=== PATIENT | male | born 1970 | race Caucasian/White ===

== ENCOUNTER 2025-01-12 10:30 | Inpatient (IN) | payer OTHER, SELFPAY ==
[2025-01-12] VITALS (22 sets, daily range): BP systolic 95–172; BP diastolic 64–144; PULSE 95–125; RESP 18–36; TEMP 36.6–38.1; O2SAT 95–100; BMI 26.9
--- NOTE | ~2025-01-12 | CT_ITS ---
EXAMINATION: CT brain wo con DATE: 01/12/2025 11:43 INDICATION: Syncope TECHNIQUE: Computed tomography (CT) of the head was performed without intravenous contrast. Sagittal and coronal reconstructions were performed. The mA was adjusted according to patient size. Iterative reconstruction technique was employed. The dose-length product was 605.33 mGy-cm. COMPARISON: None FINDINGS: No acute intracranial hemorrhage, acute infarction or abnormal extra axial fluid collection. Ventricl es are normal and symmetric. No mass/mass effect. Small mucous retention cyst in the inferior right f rontal sinus. The orbits and mastoid air cells are normal. IMPRESSION: 1. Normal brain. No acute intracranial process. Reviewed, dictated and finalized at location A. SBOW MAKER
--- NOTE | ~2025-01-12 | XR_ITS ---
EXAMINATION: XR chest 2V DATE: 01/12/2025 11:46 INDICATION: Chest pain. Syncope. TECHNIQUE: PA and lateral views of the chest were obtained. COMPARISON: None FINDINGS: Confluent airspace opacities in the right upper lobe and superior segment of the right lower lobe con sistent with pneumonia. Right lung is clear. No pleural effusion or pneumothorax. The cardiomediastin al silhouette is normal. Visualized bones and soft tissues are unremarkable. IMPRESSION: 1. Consolidation in the right upper and lower lobes consistent with pneumonia. Reviewed, dictated and finalized at location A. 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
--- OUTSIDE RECORDS SUMMARY | 2025-01-12 10:34 | XMS_ITS | Clinical Summary ---
Author Organization [facility] Physician Office Building [address] [place] [id number] Care Team Providers Care [employer] Director Name Role Phone Shannan Avina NP Primary Care Provider [phone] Allergies No known active allergies Medications methIMAzole (TAPAZOLE) 5 mg tabletIndicati ons:Graves disease,Hypert hyroidism,Diff use toxic goiter TAKE 1 TABLET (5 MG) BY MOUTH 6 DAYS PER WEEK. SKIP ON TUESDAY. 72 tablet 1 5 Active methIMAzole (TAPAZOLE) 5 mg tabletIndicati ons:Graves disease,Hypert hyroidism,Diff use toxic goiter TAKE 1 TABLET (5 MG TOTAL) BY MOUTH six days a week and none on sundays 78 tablet 1 4 12/27/19 25 Discontinued Active Problems Problem Noted Date Diagnosed Date Smoking 1/2 pack a day or less 06/23/2020 Assessment & Plan (12/22/2022 12:24 PM WINDOW FRAMER): Counseled to cut back on smoking Assessment & Plan (08/10/2022 3:54 PM CDT): Counseled to cut back and quit smoking Assessment & Plan (09/18/2021 1:18 PM CDT): Strongly advised to cut back and quit smoking Assessment & Plan (03/25/2021 7:22 AM CDT): Strongly advised to cut back and quit smoking Assessment & Plan (06/23/2020 9:29 PM CDT): Strongly advised to cut back and quit smoking Graves disease 05/15/2018 Assessment & Plan (01/25/2024 8:15 AM WINDOW FRAMER): Chronic, improving Recent thyroid function test Plan to decrease methimazole to 5 mg oral 6 days a week Check thyroid function test include thyroid antibodies in 3 months Follow-up in 6 months Assessment & Plan (07/14/2023 10:55 AM CDT): Chronic, stable Recent thyroid function test within normal limits Plan to decrease methimazole to 5 mg oral daily Check thyroid function test include thyroid antibodies in 3 months Follow-up in 6 months Assessment & Plan (12/22/2022 12:24 PM WINDOW FRAMER): Plan as above Assessment & Plan (08/10/2022 3:54 PM CDT): Plan as above Assessment & Plan (01/27/2022 7:21 AM WINDOW FRAMER): Status post radioactive iodine ablation September 2021 Patient currently on methimazole 20 mg oral daily Recheck thyroid function test today and further plans based on it Reviewed today's labs, improving Decrease Methimazole to 10 mg oral dialy Recheck TFT in 3 months Assessment & Plan (06/23/2020 9:27 PM CDT): No compressive symptoms Assessment & Plan (05/15/2018 9:43 PM CDT): Pt. C/o snoring and difficulty breathing at night Will obtain CT scan soft tissue neck - to see any tracheal compression Hyperthyroidism 08/19/2017 Assessment & Plan (12/22/2022 12:24 PM WINDOW FRAMER): Patient currently on methimazole 10 mg oral 5 days a week Reviewed and discussed patient recent thyroid labs Patient recent thyroid labs Oral normal range Clinically euthyroid Continue current dose of methimazole Recheck labs in 3 months and every 3 months Follow-up in 6 months Assessment & Plan (08/10/2022 3:53 PM CDT): Patient currently on methimazole 10 mg oral 6 days a week This dose has been adjusted on 07/20/2022 Advised to continue current medication dose Recheck thyroid function test include thyroid antibodies in September 2022 and follow-up in November 2021 Assessment & Plan (09/18/2021 1:16 PM CDT): - reviewed recent TFT , uncontrolled hyperthyroidism - increase Methimazole to 20 mg oral daily - given uncontrolled worsening hyperthyroidism . discussed with pt to consider I131 QUINTEROS therapy Pt willing to do - will order NM thyroid uptake and scan, followed by I 131 QUINTEROS - advise pt to hold methimazole 3 days before NM thyroid uptake and scan and restart Methimazole post I 131 QUINTEROS and recheck TFT in 4 weeks Important Information About your antithyroid Medication Instruction to patients taking Tapazole (methimazole) for the treatment of hyperthyroidism Name: Tomás Louis Date of : 1970 Medication : Methimazole Dose : 10 mg Frequency: take 2 tabs oral daily Take your medication every day as directed by your physician unless you notice the problems listed below: If you notice a skin rash, then call your doctor as soon as possible. If you notice a sore throat, sores in the mouth, or develop a fever: Call your doctor as soon as possible You need to go to your doctor s office or hospital to have a blood test (Complete Blood Count and Differential Count) If the blood test is normal, then your doctor will instruct you to continue taking the anti-thyroid medication. DO NOT stop the anti-thyroid medication unless your doctor tells you to do so. As long as you are taking this anti-thyroid medication, you must see your physician regularly to keep the medication properly adjusted based on your thyroid blood tests. Then please contact your doctor immediately Assessment & Plan (03/25/2021 7:22 AM CDT): - reviewed recent TFT - TSH Low, worsening - advise Methimazole to 5 mg - 1/2 tab 4 days a week and on Tue, Sat, Sun take one full tab - labs in every 3 months - follow up in 6 months Important Information About your antithyroid Medication Instruction to patients taking Tapazole (methimazole) for the treatment of hyperthyroidism Name: Tomás Louis Date of : 1970 Medication : Methimazole Dose : 5 Frequency: take one tab on Tuesday, Tue, Tue And take 2 tabs on Tuesday And , Tuesday , Tuesday , Take your medication every day as directed by your physician unless you notice the problems listed below: If you notice a skin rash, then call your doctor as soon as possible. If you notice a sore throat, sores in the mouth, or develop a fever: Call your doctor as soon as possible You need to go to your doctor s office or hospital to have a blood test (Complete Blood Count and Differential Count) If the blood test is normal, then your doctor will instruct you to continue taking the anti-thyroid medication. DO NOT stop the anti-thyroid medication unless your doctor tells you to do so. As long as you are taking this anti-thyroid medication, you must see your physician regularly to keep the medication properly adjusted based on your thyroid blood tests. Then please contact your doctor immediately Assessment & Plan (06/23/2020 9:27 PM CDT): - reviewed recent TFT - TSH slightly high - advise to decrease Methimazole to 5 mg oral daily - labs in every 3 months - follow up in 6 months Important Information About your antithyroid Medication Instruction to patients taking Tapazole (methimazole) for the treatment of hyperthyroidism Name: Tomás Louis Date of : 1970 Medication : Methimazole Dose : 5 Frequency: take one tab on Tuesday, Tue And take 2 tabs on Tuesday And , Tuesday , Tuesday , Take your medication every day as directed by your physician unless you notice the problems listed below: If you notice a skin rash, then call your doctor as soon as possible. If you notice a sore throat, sores in the mouth, or develop a fever: Call your doctor as soon as possible You need to go to your doctor s office or hospital to have a blood test (Complete Blood Count and Differential Count) If the blood test is normal, then your doctor will instruct you to continue taking the anti-thyroid medication. DO NOT stop the anti-thyroid medication unless your doctor tells you to do so. As long as you are taking this anti-thyroid medication, you must see your physician regularly to keep the medication properly adjusted based on your thyroid blood tests. Then please contact your doctor immediately Assessment & Plan (12/27/2019 9:25 AM WINDOW FRAMER): - reviewed recent TFT - WNL - advise to continue to take Methimazole 5 mg take one tab on Tuesday- , Tue And take 2 tabs Tuesday , Tuesday , - labs in every 3 months - follow up in 6 months Important Information About your antithyroid Medication Instruction to patients taking Tapazole (methimazole) for the treatment of hyperthyroidism Name: Tomás Louis Date of : 1970 Medication : Methimazole Dose : 5 Frequency: take one tab on Tuesday, Tue, Tue And take 2 tabs on Tuesday And , Tuesday , Tuesday , Take your medication every day as directed by your physician unless you notice the problems listed below: If you notice a skin rash, then call your doctor as soon as possible. If you notice a sore throat, sores in the mouth, or develop a fever: Call your doctor as soon as possible You need to go to your doctor s office or hospital to have a blood test (Complete Blood Count and Differential Count) If the blood test is normal, then your doctor will instruct you to continue taking the anti-thyroid medication. DO NOT stop the anti-thyroid medication unless your doctor tells you to do so. As long as you are taking this anti-thyroid medication, you must see your physician regularly to keep the medication properly adjusted based on your thyroid blood tests. Then please contact your doctor immediately Assessment & Plan (06/25/2019 2:08 PM CDT): - reviewed recent TFT - WNL - advise to continue to take Methimazole 5 mg take one tab on Tuesday, Tue, Tue And take 2 tabs on Tuesday And , Tuesday , Tuesday , - labs in every 3 months - follow up in 6 months Important Information About your antithyroid Medication Instruction to patients taking Tapazole (methimazole) for the treatment of hyperthyroidism Name: Tomás Louis Date of : 1970 Medication : Methimazole Dose : 5 Frequency: take one tab on Tuesday, Tue, Tue And take 2 tabs on Tuesday And , Tuesday , Tuesday , Take your medication every day as directed by your physician unless you notice the problems listed below: If you notice a skin rash, then call your doctor as soon as possible. If you notice a sore throat, sores in the mouth, or develop a fever: Call your doctor as soon as possible You need to go to your doctor s office or hospital to have a blood test (Complete Blood Count and Differential Count) If the blood test is normal, then your doctor will instruct you to continue taking the anti-thyroid medication. DO NOT stop the anti-thyroid medication unless your doctor tells you to do so. As long as you are taking this anti-thyroid medication, you must see your physician regularly to keep the medication properly adjusted based on your thyroid blood tests. Then please contact your doctor immediately Assessment & Plan (11/13/2018 8:49 PM WINDOW FRAMER): - advise to continue to take Methimazole 5 mg oral daily - recheck TFT soon and further plans based on repeat labs - repeat labs soon and every 3 months - follow up in 6 months Important Information About your antithyroid Medication Instruction to patients taking Tapazole (methimazole) for the treatment of hyperthyroidism Name: Tomás Louis Date of : 1970 Medication : Methimazole Dose : 5 Frequency: once daily Take your medication every day as directed by your physician unless you notice the problems listed below: If you notice a skin rash, then call your doctor as soon as possible. If you notice a sore throat, sores in the mouth, or develop a fever: Call your doctor as soon as possible You need to go to your doctor s office or hospital to have a blood test (Complete Blood Count and Differential Count) If the blood test is normal, then your doctor will instruct you to continue taking the anti-thyroid medication. DO NOT stop the anti-thyroid medication unless your doctor tells you to do so. As long as you are taking this anti-thyroid medication, you must see your physician regularly to keep the medication properly adjusted based on your thyroid blood tests. Then please contact your doctor immediately Assessment & Plan (08/13/2018 9:38 PM CDT): - checked labs today - and based on the results - TSH high, pt has iatrogenic hypothyroidism - advised to stop methimazole for one week, then restart taking Methimazole 5 mg oral daily - follow up in 3 months Important Information About your antithyroid Medication Instruction to patients taking Tapazole (methimazole) for the treatment of hyperthyroidism Name: Tomás Louis Date of : 1970 Medication : Methimazole Dose : 5 Frequency: once daily Take your medication every day as directed by your physician unless you notice the problems listed below: If you notice a skin rash, then call your doctor as soon as possible. If you notice a sore throat, sores in the mouth, or develop a fever: Call your doctor as soon as possible You need to go to your doctor s office or hospital to have a blood test (Complete Blood Count and Differential Count) If the blood test is normal, then your doctor will instruct you to continue taking the anti-thyroid medication. DO NOT stop the anti-thyroid medication unless your doctor tells you to do so. As long as you are taking this anti-thyroid medication, you must see your physician regularly to keep the medication properly adjusted based on your thyroid blood tests. Then please contact your doctor immediately Assessment & Plan (05/15/2018 9:42 PM CDT): - advised to continue taking Methimazole to 20 mg oral daily - c/w Atenolol to 25 mg oral daily - will try to obtain pt. Recent labs from [facility] and reassess and further adjust Methimazole accordingly - follow up in 2 months Important Information About your antithyroid Medication Instruction to patients taking Tapazole (methimazole) for the treatment of hyperthyroidism Name: Tomás Louis Date of : 1970 Medication : Methimazole Dose : 20 mg Frequency: once daily Take your medication every day as directed by your physician unless you notice the problems listed below: If you notice a skin rash, then call your doctor as soon as possible. If you notice a sore throat, sores in the mouth, or develop a fever: Call your doctor as soon as possible You need to go to your doctor s office or hospital to have a blood test (Complete Blood Count and Differential Count) If the blood test is normal, then your doctor will instruct you to continue taking the anti-thyroid medication. DO NOT stop the anti-thyroid medication unless your doctor tells you to do so. As long as you are taking this anti-thyroid medication, you must see your physician regularly to keep the medication properly adjusted based on your thyroid blood tests. Then please contact your doctor immediately Assessment & Plan (03/06/2018 7:31 AM CDT): - Reviewed pt. Labs from 02/22/2018 TSH - < 0.015 Free T 3 - 19.5 Free T4 - 3.4 - advised to increase Methimazole to 20 mg oral daily - c/w Atenolol to 25 mg oral daily - pt. Prefers to continue Methimazole, do not to try QUINTEROS ablation , might consider as an option if not responding to oral antithyroid therapy - recheck blood Work every 2 months - follow up in 2 months Important Information About your antithyroid Medication Instruction to patients taking Tapazole (methimazole) for the treatment of hyperthyroidism Name: Tomás Louis Date of : 1970 Medication : Methimazole Dose : 20 mg Frequency: once daily Take your medication every day as directed by your physician unless you notice the problems listed below: If you notice a skin rash, then call your doctor as soon as possible. If you notice a sore throat, sores in the mouth, or develop a fever: Call your doctor as soon as possible You need to go to your doctor s office or hospital to have a blood test (Complete Blood Count and Differential Count) If the blood test is normal, then your doctor will instruct you to continue taking the anti-thyroid medication. DO NOT stop the anti-thyroid medication unless your doctor tells you to do so. As long as you are taking this anti-thyroid medication, you must see your physician regularly to keep the medication properly adjusted based on your thyroid blood tests. Then please contact your doctor immediately Assessment & Plan (10/25/2017 10:43 AM WINDOW FRAMER): - Reviewed pt. Labs from 10/24/2017 TSH - < 0.015 ( L) Free T 4- 0.29 ( L) Free T 3 - 4.4 - advised to decrease Methimazole to 10 mg oral daily - decrease Atenolol to 25 mg oral daily - pt. Prefers to continue Methimazole, do not to try QUINTEROS ablation , might consider as an option if not responding to oral antithyroid therapy - recheck blood Work in 2 months and every 2 months - follow up in 4 months Important Information About your antithyroid Medication Instruction to patients taking Tapazole (methimazole) for the treatment of hyperthyroidism Name: Tomás Louis Date of : 1970 Medication : Methimazole Dose : 10 mg Frequency: once daily Take your medication every day as directed by your physician unless you notice the problems listed below: If you notice a skin rash, then call your doctor as soon as possible. If you notice a sore throat, sores in the mouth, or develop a fever: Call your doctor as soon as possible You need to go to your doctor s office or hospital to have a blood test (Complete Blood Count and Differential Count) If the blood test is normal, then your doctor will instruct you to continue taking the anti-thyroid medication. DO NOT stop the anti-thyroid medication unless your doctor tells you to do so. As long as you are taking this anti-thyroid medication, you must see your physician regularly to keep the medication properly adjusted based on your thyroid blood tests. Then please contact your doctor immediately Assessment & Plan (08/19/2017 8:57 PM CDT): - reviewed pt. Recent TFT labs - suppressed TSH and high Free T 4, Along with pt symptoms and diffuse enlarged hypervascular thyroid gland on Thyroid U/S - Goes with Hyperthyroidism , probably sec. To Grave's disease . - will repeat labs today , and TPO ab and TSI - also explained to pt. In detail what his lab results meant and all treatment options for Hyperthyroidism Meds vs QUINTEROS vs surgery - pt. Prefers to get started on oral antithyroid meds - advise to start taking Methimazole 20 mg oral daily - start Atenolol 50 mg oral daily - repeat blood work in 2 months before the next appt. Important Information About your antithyroid Medication Instruction to patients taking Tapazole (methimazole) for the treatment of hyperthyroidism Name: Tomás Louis Date of : 1970 Medication : Methimazole Dose : 20 mg Frequency: once daily Take your medication every day as directed by your physician unless you notice the problems listed below: If you notice a skin rash, then call your doctor as soon as possible. If you notice a sore throat, sores in the mouth, or develop a fever: Call your doctor as soon as possible You need to go to your doctor s office or hospital to have a blood test (Complete Blood Count and Differential Count) If the blood test is normal, then your doctor will instruct you to continue taking the anti-thyroid medication. DO NOT stop the anti-thyroid medication unless your doctor tells you to do so. As long as you are taking this anti-thyroid medication, you must see your physician regularly to keep the medication properly adjusted based on your thyroid blood tests. Then please contact your doctor immediately Surgical History Surgery Date Site/Laterality Comments KNEE SURGERY Left Medical History Medical History Date Comments Hyperthyroidism Family History Medical History Relation Name Comments No Known Problems Father No Known Problems Mother Relation Name Status Comments Father Mother Social History Tobacco Use Types Packs/Day Years Used Date Smoking Tobacco: Every Day Cigarettes Smokeless Tobacco: Never Tobacco Cessation:Ready to Q uit: Not Asked; Counseling Given: Not Answered Alcohol Use Standard Drinks/Week Comments No 0 (1 standard drink = 0.6 oz pur e alcohol) PHQ-2 Answer Date Recorded PHQ-2 Total Score (If total score is 3 or more points, staff should administer the PHQ-9) 0 12/22/2022 Personal Safety Answer Date Recorded Getting School Help Needed Not on file 11/25 Sex and Gender Information Value Date Recorded Sex Assigned at Not on file Legal Sex Male 9:24 PM WINDOW FRAMER Gender Identity Not on file Sexual Orientation Not on file Obstetrics History Last Filed Vital Signs Vital Sign Reading Time Taken Comments Blood Pressure 130/78 01/24/2024 2:54 PM WINDOW FRAMER Pulse 69 01/24/2024 2:54 PM WINDOW FRAMER Temperature - - Respiratory Rate 17 01/24/2024 2:54 PM WINDOW FRAMER Oxygen Saturation - - Inhaled Oxygen Concentration - - Weight 82.1 kg (181 lb) 01/24/2024 2:54 PM WINDOW FRAMER Height 175.3 cm (5' 9 ) 01/24/2024 2:54 PM WINDOW FRAMER Body Mass Index 26.73 01/24/2024 2:54 PM WINDOW FRAMER Plan of Treatment Health Maintenance Due Date Last Done Comments Colon Cancer Screening-Colonoscopy 1970 Hepatitis C Screening 1970 Prostate Cancer Screening-PSA 1971 DTaP/Tdap/Td Vaccine (1 - Tdap) 1982 Hepatitis B Screening 1989 Regular Well Visit/Exam 18-64 1989 Pneumococcal vaccine <65 (1 of 2 - PCV) 1990 Zoster Vaccine (1 of 2) 2021 Depression Screening 12/22/2023 12/22/2022, 08/10/2022, 01/26/2022, Additional history exists Influenza Vaccine (#1) 2024 Insurance HMO/POS HMO [employer] COVENTRY HMO/POS Care Teams [employer] Director Relationship Specialty Start Date End Date Shannan Avina NP PCP - General Nurse Practitioner 08/18/17
--- OUTSIDE RECORDS SUMMARY | 2025-01-12 10:34 | XMS_ITS | Referral Summary ---
Author Organization [facility] Physician Office Building [address] [place] [id number] Care Team Providers Care Supervisor [employer] Name Role Phone Shannan Avina NP Primary Care Provider [phone] Allergies No known active allergies Medications methIMAzole [...] 06/23/2020 Assessment & Plan (12/22/2022 12:24 PM DIRECTOR HEALTH): Counseled to cut back on smoking Assessment [...] 05/15/2018 Assessment & Plan (01/25/2024 8:15 AM DIRECTOR HEALTH): Chronic, improving Recent thyroid function test Plan [...] months Assessment & Plan (12/22/2022 12:24 PM DIRECTOR HEALTH): Plan as above Assessment & Plan (08/10/2022 3:54 PM CDT): Plan as above Assessment & Plan (01/27/2022 7:21 AM DIRECTOR HEALTH): Status post radioactive iodine ablation September 2021 [...] 08/19/2017 Assessment & Plan (12/22/2022 12:24 PM DIRECTOR HEALTH): Patient currently on methimazole 10 mg oral [...] immediately Assessment & Plan (12/27/2019 9:25 AM DIRECTOR HEALTH): - reviewed recent TFT - WNL - [...] immediately Assessment & Plan (11/13/2018 8:49 PM DIRECTOR HEALTH): - advise to continue to take Methimazole [...] try to obtain pt. Recent labs from [facility] and reassess and further adjust Methimazole accordingly [...] immediately Assessment & Plan (10/25/2017 10:43 AM DIRECTOR HEALTH): - Reviewed pt. Labs from 10/24/2017 TSH [...] tests. Then please contact your doctor immediately Social History Tobacco Use Types Packs/Day Years [...] on file Legal Sex Male 9:24 PM DIRECTOR HEALTH Gender Identity Not on file Sexual Orientation Not on file Last Filed Vital Signs Vital Sign Reading Time Taken Comments Blood Pressure 130/78 01/24/2024 2:54 PM DIRECTOR HEALTH Pulse 69 01/24/2024 2:54 PM DIRECTOR HEALTH Temperature - - Respiratory Rate 17 01/24/2024 2:54 PM DIRECTOR HEALTH Oxygen Saturation - - Inhaled Oxygen Concentration - - Weight 82.1 kg (181 lb) 01/24/2024 2:54 PM DIRECTOR HEALTH Height 175.3 cm (5' 9 ) 01/24/2024 2:54 PM DIRECTOR HEALTH Body Mass Index 26.73 01/24/2024 2:54 PM DIRECTOR HEALTH Plan of Treatment Not on file Insurance HMO/POS HMO HMO/POS Care Teams Supervisor [employer] Relationship Specialty Start Date End Date Shannan Avina NP PCP - General Nurse Practitioner 08/18/17
--- NOTE | 2025-01-12 10:37 | ECG_ITS ---
Test Date: 2025-01-12 10:44:58 Measurements Intervals Royal Rate: 122 P: 68 NC: 179 QRS: -6 QRSD: 106 T: 55 QT: 333 QTc: 476 Interpretive Statements SINUS TACHYCARDIA DELAYED PRECORDIAL R/S TRANSITION BASELINE ARTIFACT- I, II, III, AVR, AVL, AVF ABNORMAL ECG No previous ECG available for comparison Electronically Signed On 01-12-2025 10:46:43 STEEPLE JACK by Kevin Rodriguez D.O.
[2025-01-12 10:59] LABS: Hematocrit 37.4 % (42.0-52.0); Hemoglobin 13.3 g/dL (14.0-18.0); Mean Corpuscular HGB Conc 35.6 g/dl (32-36); Mean Corpuscular Hemoglobin 32.3 pg (26-34); Mean Corpuscular Volume 90.8 fl (80-100); Platelet Count Result 323 k/mm3 (150-375); Red Blood Count 4.12 M/mm3 (4.6-6.20); Red Cell Distribution Width 14.2 % (11.5-14.5); White Blood Count 45.1 K/mm3 (4.5-10.0)
[2025-01-12 11:24] LABS: Troponin I < 0.012 ng/mL (0.000-0.034)
[2025-01-12 11:25] LABS: Alanine Aminotransferase 50 U/L (6-50); Alkaline Phosphatase 235 U/L (38-126); Anion Gap 14 mmol/L (4-12); Aspartate Amino Transferase 39 U/L (17-59); Bilirubin,Total 2.5 mg/dL (0.2-1.3); Blood Urea Nitrogen 30 mg/dL (9-20); Calcium 8.4 mg/dL (8.4-10.2); Carbon Dioxide 24 mmol/L (22-30); Chloride 97 mmol/L (98-107); Estimated CRCL calculation 67 ml/min; Estimated Glomerular Filt Rate > 60; Glucose 150 mg/dL (65-110); Potassium 2.8 mmol/L (3.4-5.0); Sodium 135 mmol/L (137-145)
[2025-01-12 11:30] LABS: Band Neutrophils Percent 21 % (0-6); Lymphocytes Absolute Manual 1.35 K/mm3 (1.1-4.5); Lymphocytes Percent Manual 3 % (18-44); Monocytes Absolute Manual 2.25 K/mm3 (0.1-0.90); Monocytes Percent Manual 5 % (3-9); Neutrophils Absolute Manual 41.49 K/mm3 (1.3-6.7); Neutrophils Percent Manual 71 % (46-73); Total Cells Counted 100
[2025-01-12 11:31] LABS: Anisocytosis 1+; Burr Cells 1+; Platelet Estimate Adequate (Adequate); Schistocytes None Seen
[2025-01-12] MEDS: LACTATED RINGERS 1,000 ML 999 ML IV CONT ×2 (11:43→13:22)
[2025-01-12 11:51] LABS: Magnesium 2.1 mg/dL (1.6-2.3)
--- NOTE | 2025-01-12 12:13 | ED.SYNCOPE ---
HPI - Syncope General Chief Complaint: Syncope Stated Complaint: syncope Time Seen by Provider: 01/12/25 11:14 History of Present Illness HPI narrative: 54-year-old otherwise healthy male presenting to the emergency department after a syncopal event at home. Patient has been doing with influenza for last 4 days and having some nauseousness vomiting and diarrhea. Been having fevers and night sweats. Patient states he was prescribed Tamiflu and been taking etqh-ujq-mznmong medications. He still has 2 days of Tamiflu left. Today he had a witnessed syncopal event. Patient was in the shower, heard a loud thud and came to find the patient unconscious but woke up after stimulation. Patient is not sure exactly what happened and does not remember falling. Patient states he has been feeling dehydrated and drinking Powerade and water. Endorses subjective fever and chills. Endorses left-sided chest discomfort but no difficulty breathing or pleuritic chest pain. No nausea or vomiting presently. No abdominal pain or back pain. Does not take any blood thinner medications. Related Data Allergies Allergy/AdvReac Type Severity Reaction Status Date / Time No Known Allergies Allergy Mild Unverified 03/13/09 11:23 Review of Systems Review of Systems: As reviewed above in HPI Exam Narrative: GENERAL: [Well-appearing, well-nourished, and in no acute distress.] HEAD: [Normocephalic, atraumatic.] EYES: [PERRLA and EOMI.] ENT: Nares clear, no rhinorrhea or epistaxis. Mucous membranes dry. NECK: Supple. CHEST: Coarse left-sided breath sounds without any wheezing or prolonged expiration. No right-sided accessory breath sounds. No pain with palpation. Left-sided chest wall tattoo. HEART: [Regular rate and rhythm]. No murmur heard. [Normal peripheral pulses.] ABDOMEN: [Soft, nondistended], [nontender], [No rigidity or guarding] EXTREMITIES: Normal range of motion. [No edema.] SKIN: Warm, dry, no rash. NEURO: [No focal deficits]. Alert and oriented [x3.] PSYCH: [Normal mood and affect.] Course Vital Signs Vital signs: Vital Signs Temperature 36.6 C 01/12/25 10:48 Pulse Rate 125 H 01/12/25 10:48 Blood Pressure 95/77 L 01/12/25 10:48 Pulse Oximetry 98 01/12/25 10:48 Temperature 36.8 C 01/12/25 13:15 Pulse Rate 114 H 01/12/25 13:15 Respiratory Rate 21 H 01/12/25 13:15 Blood Pressure 95/66 L 01/12/25 13:15 Pulse Oximetry 96 01/12/25 13:15 MDM - Syncope MDM Narrative Medical decision making narrative: 54-year-old male presenting to the emergency department after a syncopal event. He has been having flu for last few days, treated with Tamiflu, having nausea vomiting diarrhea with GI losses. Found to be hypotensive and tachycardic in triage vital signs, slightly tachypneic with left-sided accessory breath sounds. Suspicion presently is for potential dehydration, intravascular volume depletion, sepsis, pneumonia, COVID, flu, RSV. Low suspicion ACS although he has complained of chest pain. Septic bundle was initiated this time, he was given 30 cc/kg bolus of LR, blood cultures were obtained as well as lactic acid and coags, CBC, CMP, chest x-ray, EKG and CT of the head were obtained. Troponin ordered. He was started on azithromycin and Rocephin after review of his chest x-ray showing multilobar left-sided pneumonia. Workup shows significant derangements including a leukocytosis of 45,000 with a left shift and mostly predominant neutrophils. Minimal monocytes. Consistent with bacterial infection. Coags within normal limits, electrolytes show derangements including hypokalemia 2 point a likely secondary from GI losses given his vomiting and diarrhea. Lactic acidosis of 3.4, will trend on repeat after fluid bolus. Normal creatinine, elevated BUN likely dehydration. Elevated anion gap secondary to lactic acidosis. Negative troponin. Tested negative for COVID, flu, RSV. Head CT shows no acute intracranial process. EKG shows sinus tachycardia. Given patient's recent influenza being treated with Tamiflu in currently undetectable suspicious for potential bacterial superimposed infection such as MRSA given him is pneumonia. Added on vancomycin in addition to his Rocephin and azithromycin. Patient will be admitted to the hospital. He was evaluated after fluid bolus antibiotic initiation. Vital signs on repeat examination show improvement with a blood pressure of 117/55, tachycardia has improved to the 100-110 range. Patient felt improved. Patient and family were made aware of the status and prognosis as well as the admission to the hospital. Patient will go to the step-down unit after discussions with the hospitalist team currently being covered by the midlevel provider Ofelia Funk. Medical Records Attestation: I reviewed the patient's medical records. Lab Data 01/12/25 10:51 01/12/25 10:51 Labs: Lab Results 01/12/25 01/12/25 01/12/25 Range/Units 10:51 10:51 11:43 WBC 45.1 H (4.5-10.0) K/mm3 RBC 4.12 L (4.6-6.20) M/mm3 Hgb 13.3 L (14.0-18.0) g/dL Hct 37.4 L (42.0-52.0) % MCV 90.8 (80-100) fl MCH 32.3 (26-34) pg MCHC 35.6 (32-36) g/dl RDW 14.2 (11.5-14.5) % Plt Count 323 (150-375) k/mm3 MPV 11.0 H (7.4-10.4) fl Immature Gran % (Auto) Not Reportable Neut % (Auto) Not Reportable Lymph % (Auto) Not Reportable Antelope % (Auto) Not Reportable Eos % (Auto) Not Reportable Baso % (Auto) Not Reportable Lymph # (Auto) Not Reportable Antelope # (Auto) Not Reportable Eos # (Auto) Not Reportable Baso # (Auto) Not Reportable Abs Immat Gran (auto) Not Reportable Absolute Neuts (auto) Not Reportable Absolute Nucleated RBC Not Reportable Total Counted 100 Neutrophils % (Manual) 71 (46-73) % Band Neutrophils % 21 H (0-6) % Lymphocytes % (Manual) 3 L (18-44) % Monocytes % (Manual) 5 (3-9) % Nucleated RBC % Not Reportable Abs Neuts (Manual) 41.49 H (1.3-6.7) K/mm3 Abs Lymphs (Manual) 1.35 (1.1-4.5) K/mm3 Abs Monocytes (Manual) 2.25 H (0.1-0.90) K/mm3 Platelet Estimate Adequate (Adequate) Anisocytosis 1+ Effort Cells 1+ Schistocytes None seen PT 15.1 H (11.1-14.7) Seconds INR 1.2 APTT 30.1 (22.3-36.8) Seconds Sodium 135 L (137-145) mmol/L Potassium 2.8 L* (3.4-5.0) mmol/L Chloride 97 L (98-107) mmol/L Carbon Dioxide 24 (22-30) mmol/L Anion Gap 14 H (4-12) mmol/L BUN 30 H (9-20) mg/dL Creatinine 1.14 (0.7-1.3) mg/dL Estim Creat Clear Calc 67 ml/min Estimated GFR > 60 (59 - ) Glucose 150 H (65-110) mg/dL Lactic Acid (0.7-2.0) mmol/L Calcium 8.4 (8.4-10.2) mg/dL Magnesium 2.1 Cancelled (1.6-2.3) mg/dL Total Bilirubin 2.5 H (0.2-1.3) mg/dL AST 39 (17-59) U/L ALT 50 (6-50) U/L Alkaline Phosphatase 235 H (38-126) U/L Troponin I < 0.012 (0.000-0.034) ng/mL C-Reactive Protein Total Protein 7.0 (6.3-8.2) g/dL Albumin 3.0 L (3.5-5.1) g/dL Influenza A (RT-PCR) Negative (Negative) Influenza B (RT-PCR) Negative (Negative) RSV (RT-PCR) Negative (Negative) SARS-CoV-2 RNA (RT-PCR) Negative (Negative) 01/12/25 01/12/25 Range/Units 12:27 12:29 WBC (4.5-10.0) K/mm3 RBC (4.6-6.20) M/mm3 Hgb (14.0-18.0) g/dL Hct (42.0-52.0) % MCV (80-100) fl MCH (26-34) pg MCHC (32-36) g/dl RDW (11.5-14.5) % Plt Count (150-375) k/mm3 MPV (7.4-10.4) fl Immature Gran % (Auto) Neut % (Auto) Lymph % (Auto) Antelope % (Auto) Eos % (Auto) Baso % (Auto) Lymph # (Auto) Antelope # (Auto) Eos # (Auto) Baso # (Auto) Abs Immat Gran (auto) Absolute Neuts (auto) Absolute Nucleated RBC Total Counted Neutrophils % (Manual) (46-73) % Band Neutrophils % (0-6) % Lymphocytes % (Manual) (18-44) % Monocytes % (Manual) (3-9) % Nucleated RBC % Abs Neuts (Manual) (1.3-6.7) K/mm3 Abs Lymphs (Manual) (1.1-4.5) K/mm3 Abs Monocytes (Manual) (0.1-0.90) K/mm3 Platelet Estimate (Adequate) Anisocytosis Dejah Cells Schistocytes PT (11.1-14.7) Seconds INR APTT (22.3-36.8) Seconds Sodium (137-145) mmol/L Potassium (3.4-5.0) mmol/L Chloride (98-107) mmol/L Carbon Dioxide (22-30) mmol/L Anion Gap (4-12) mmol/L BUN (9-20) mg/dL Creatinine (0.7-1.3) mg/dL Estim Creat Clear Calc ml/min Estimated GFR (59 - ) Glucose (65-110) mg/dL Lactic Acid 3.4 H (0.7-2.0) mmol/L Calcium (8.4-10.2) mg/dL Magnesium (1.6-2.3) mg/dL Total Bilirubin (0.2-1.3) mg/dL AST (17-59) U/L ALT (6-50) U/L Alkaline Phosphatase (38-126) U/L Troponin I (0.000-0.034) ng/mL C-Reactive Protein Pending Total Protein (6.3-8.2) g/dL Albumin (3.5-5.1) g/dL Influenza A (RT-PCR) (Negative) Influenza B (RT-PCR) (Negative) RSV (RT-PCR) (Negative) SARS-CoV-2 RNA (RT-PCR) (Negative) Imaging Data Attestation: I personally reviewed and interpreted this imaging study as follows: My impression: Impressions Head CT 01/12/25 11:44 IMPRESSION: 1. Normal brain. No acute intracranial process. Chest X-Ray 01/12/25 11:49 IMPRESSION: 1. Consolidation in the right upper and lower lobes consistent with pneumonia. ECG Data EKG #1: Attestation: I personally reviewed and interpreted this ECG as follows: ECG completion date: 01/12/25 ECG completion time: 10:44 Prior ECG tracings: not available for review Interpretation: Sinus tachycardia, rate of 122 beats per minute, AL interval 179, QTC 476, QRS interval 106. No ST segment elevations, depressions or inversions. Prominent appearing P-waves. Overall interpretation sinus tachycardia. No EKG for comparison Critical Care Time Critical Care Time Critical Care Time: Yes Total Critical Care Time: 76 Discharge Plan Discharge Clinical Impression: Severe sepsis, Bacterial lobar pneumonia, History of influenza, Acute hypokalemia, Syncope and collapse, Neutrophilic leukocytosis Patient Disposition: Still a Patient Condition: Serious Patient Language: Ethiopian Follow-up/Referrals: PHYSICIAN,FIRE TECHNOLOGY INSTRUCTOR [Primary Care Provider] - Time of Disposition: 13:39
--- OUTSIDE RECORDS SUMMARY | 2025-01-12 12:18 | XMS_ITS | Referral Summary ---
Author Organization [facility] [address] [place] [id number] Care Team Providers Care Stitching Department Supervisor Name Role Phone Shannan Avina NP Primary Care Provider [phone] Allergies No known active allergies Medications methIMAzole [...] 06/23/2020 Assessment & Plan (12/22/2022 12:24 PM SCOOPER): Counseled to cut back on smoking Assessment [...] 05/15/2018 Assessment & Plan (01/25/2024 8:15 AM SCOOPER): Chronic, improving Recent thyroid function test Plan [...] months Assessment & Plan (12/22/2022 12:24 PM SCOOPER): Plan as above Assessment & Plan (08/10/2022 3:54 PM CDT): Plan as above Assessment & Plan (01/27/2022 7:21 AM SCOOPER): Status post radioactive iodine ablation September 2021 [...] 08/19/2017 Assessment & Plan (12/22/2022 12:24 PM SCOOPER): Patient currently on methimazole 10 mg oral [...] immediately Assessment & Plan (12/27/2019 9:25 AM SCOOPER): - reviewed recent TFT - WNL - [...] immediately Assessment & Plan (11/13/2018 8:49 PM SCOOPER): - advise to continue to take Methimazole [...] try to obtain pt. Recent labs from [facility] and reassess and further adjust Methimazole accordingly [...] immediately Assessment & Plan (10/25/2017 10:43 AM SCOOPER): - Reviewed pt. Labs from 10/24/2017 TSH [...] on file Legal Sex Male 9:24 PM SCOOPER Gender Identity Not on file Sexual Orientation Not on file Last Filed Vital Signs Vital Sign Reading Time Taken Comments Blood Pressure 130/78 01/24/2024 2:54 PM SCOOPER Pulse 69 01/24/2024 2:54 PM SCOOPER Temperature - - Respiratory Rate 17 01/24/2024 2:54 PM SCOOPER Oxygen Saturation - - Inhaled Oxygen Concentration - - Weight 82.1 kg (181 lb) 01/24/2024 2:54 PM SCOOPER Height 175.3 cm (5' 9 ) 01/24/2024 2:54 PM SCOOPER Body Mass Index 26.73 01/24/2024 2:54 PM SCOOPER Plan of Treatment Not on file Insurance HMO/POS HMO HMO/POS Care Teams Stitching Department Supervisor Relationship Specialty Start Date End Date Shannan Avina NP PCP - General Nurse Practitioner 08/18/17
--- OUTSIDE RECORDS SUMMARY | 2025-01-12 12:18 | XMS_ITS | Clinical Summary ---
Author Organization [facility] [address] [place] [id number] Care Team Providers Care Communications Technologist Name Role Phone Shannan Avina NP Primary Care Provider [phone] Allergies No known active allergies Medications methIMAzole [...] 06/23/2020 Assessment & Plan (12/22/2022 12:24 PM AGENT TELEGRAPHER): Counseled to cut back on smoking Assessment [...] 05/15/2018 Assessment & Plan (01/25/2024 8:15 AM AGENT TELEGRAPHER): Chronic, improving Recent thyroid function test Plan [...] months Assessment & Plan (12/22/2022 12:24 PM AGENT TELEGRAPHER): Plan as above Assessment & Plan (08/10/2022 3:54 PM CDT): Plan as above Assessment & Plan (01/27/2022 7:21 AM AGENT TELEGRAPHER): Status post radioactive iodine ablation September 2021 [...] 08/19/2017 Assessment & Plan (12/22/2022 12:24 PM AGENT TELEGRAPHER): Patient currently on methimazole 10 mg oral [...] immediately Assessment & Plan (12/27/2019 9:25 AM AGENT TELEGRAPHER): - reviewed recent TFT - WNL - [...] immediately Assessment & Plan (11/13/2018 8:49 PM AGENT TELEGRAPHER): - advise to continue to take Methimazole [...] try to obtain pt. Recent labs from [facility] and reassess and further adjust Methimazole accordingly [...] to continue Methimazole, do not to try QUINTREOS ablation , might consider as an option [...] immediately Assessment & Plan (10/25/2017 10:43 AM AGENT TELEGRAPHER): - Reviewed pt. Labs from 10/24/2017 TSH [...] on file Legal Sex Male 9:24 PM AGENT TELEGRAPHER Gender Identity Not on file Sexual Orientation Not on file Obstetrics History Last Filed Vital Signs Vital Sign Reading Time Taken Comments Blood Pressure 130/78 01/24/2024 2:54 PM AGENT TELEGRAPHER Pulse 69 01/24/2024 2:54 PM AGENT TELEGRAPHER Temperature - - Respiratory Rate 17 01/24/2024 2:54 PM AGENT TELEGRAPHER Oxygen Saturation - - Inhaled Oxygen Concentration - - Weight 82.1 kg (181 lb) 01/24/2024 2:54 PM AGENT TELEGRAPHER Height 175.3 cm (5' 9 ) 01/24/2024 2:54 PM AGENT TELEGRAPHER Body Mass Index 26.73 01/24/2024 2:54 PM AGENT TELEGRAPHER Plan of Treatment Health Maintenance Due Date [...] HMO/POS HMO [employer] COVENTRY HMO/POS Care Teams Communications Technologist Relationship Specialty Start Date End Date Shannan Avina NP PCP - General Nurse Practitioner 08/18/17
[2025-01-12 12:44] LABS: INR 1.2; Prothrombin Time 15.1 Seconds (11.1-14.7)
[2025-01-12 12:45] LABS: Partial Thromboplastin Time 30.1 Seconds (22.3-36.8)
[2025-01-12 12:57] LABS: Influenza A QL RT-PCR Negative (Negative); Influenza B QL RT-PCR Negative (Negative); RSV RNA, RT-PCR Negative (Negative); SARS-CoV-2 RNA PCR Negative (Negative)
[2025-01-12 13:02] LABS: Lactic Acid Reflex 3.4 mmol/L (0.7-2.0)
[2025-01-12] MEDS: POTASSIUM CHLORIDE 20 MEQ PACKET (FOR LIQUID) 40 MEQ PO (13:14)
[2025-01-12] MEDS: POTASSIUM CHLORIDE INJ 40 MEQ in SODIUM CHLORIDE 0.9% IV 500 ML 130 MEQ IVPB (13:23)
[2025-01-12] MEDS: AZITHROMYCIN 500 MG/NS 250 ML 500 MG/250 ML BAG 250 MG IVPB (13:29)
[2025-01-12] MEDS: LACTATED RINGERS 500 ML 999 ML IV CONT (13:30)
--- NOTE | 2025-01-12 13:30 | PM.IMHP ---
H&P: HPI History of Present Illness Date/Time: 01/12/25 13:30 Chief Complaint: Syncope. Narrative: This is a pleasant 54-year-old male smoker with hyperthyroidism who presented to the emergency department via EMS from home for evaluation after syncopal episode. The patient provides the following history. He has not been feeling well for over a week with symptoms to include generalized malaise, weakness, nausea, vomiting, and diarrhea. Temperature has been as high as 102.6? F. He was diagnosed with influenza on Tuesday and was prescribed oseltamivir which he has been taking. He has also been taking acetaminophen, ibuprofen, and itsd-pgm-nzzccct cold and flu medications without much improvement. With further questioning he reports a very rare, dry cough but today he developed left-sided pleuritic chest pain and he has been short of breath with exertion. His appetite has not been great but he has been drinking Powerade and water to stay hydrated. Not long prior to arrival he was taking a shower when his heard a thud. She ran into the bathroom and found him sitting on the floor of the shower. He does not recall any antecedent symptoms prior to the fall and thinks that he briefly passed out. He denies sore throat, exertional chest pain, orthopnea, lower extremity edema, calf pain, hemoptysis, melena, hematochezia, and dysuria. In the ED: Vital signs on arrival include a temperature of 97.8?, blood pressure 95/77, pulse 125, respiratory rate 23, SpO2 98% on room air. Labs were significant for WBC count of 45.1 with 21% bands, hemoglobin 13.3, sodium 135, potassium 2.8, chloride 97, anion gap 14, BUN 30, creatinine 1.14, glucose 150, lactic acid 3.4, total bilirubin 2.5, alkaline phosphatase 235, troponin less than 0.012, CRP 36.7. He was negative for influenza, RSV, and COVID. Head CT was without acute findings. Chest x-ray showed a large consolidation in the left upper lobe and lower lobes consistent with pneumonia. He received 3 L lactated Ringer's bolus with improvement his blood pressures. Potassium was replaced and he is being admitted in this setting for further treatment. Review of Systems Review of Systems: 12 systems were reviewed and are negative except for as per HPI. [facility] Past Medical History Medical History (Updated 01/12/25 @ 21:37 by Ofelia Funk PA-C) Tobacco dependence Hyperthyroidism status post radioactive iodine in 2020, maintained on methimazole Surgical History Surgical History (Updated 01/12/25 @ 21:37 by Ofelia Funk PA-C) No history of previous surgery Social History Social History (Updated 01/12/25 @ 21:38 by Ofelia Funk PA-C) Social History: Surrogate medical decision maker: Melissa Louis, spouse. Code status: Full code. Smoking packs per day: 1 Smoking cigarettes per day: 20.0 Years smoked: 40 Smoking pack-years: 40.00 Smoking status: Current every day smoker Second hand tobacco smoke exposure: No Alcohol intake: never Substance use: never Do You Feel Safe in your Home?: Yes Lack of Transportation: YES Lack of Food: Never True Current Housing: I Have Housing Concerned About Future Housing: No Difficulty Paying Gas/Electric Bills: No Difficulty Paying for Meds: No Currently Unemployed: No Education: High School Diploma/GED Difficulty w/ Childcare or Family Care: No Spiritual care concerns: No Meds Home Medications and Allergies Home Medications ?Medication ?Instructions ?Recorded ?Confirmed ?Type methimazole 5 mg tablet 5 mg PO DAILY 01/12/25 01/12/25 History Allergies Allergy/AdvReac Type Severity Reaction Status Date / Time No Known Allergies Allergy Mild Unverified 03/13/09 11:23 Vital Signs Vital Signs - 24 hr 01/12/25 10:48 01/12/25 10:59 01/12/25 11:00 Temperature 97.8 F Pulse Rate 125 H 119 H 117 H Respiratory Rate 23 H Blood Pressure 95/77 L 108/72 Pulse Oximetry 98 96 01/12/25 11:01 01/12/25 11:02 01/12/25 11:02 Temperature Pulse Rate 117 H 117 H 119 H Respiratory Rate 27 H 21 H 25 H Blood Pressure 108/72 108/72 Pulse Oximetry 95 01/12/25 11:16 01/12/25 12:20 01/12/25 12:30 Temperature Pulse Rate 113 H 111 H 119 H Respiratory Rate 23 H 24 H 18 Blood Pressure Pulse Oximetry 96 01/12/25 12:45 01/12/25 13:00 01/12/25 13:15 Temperature 98.2 F Pulse Rate 116 H 118 H 114 H Respiratory Rate 18 36 H 21 H Blood Pressure 95/66 L Pulse Oximetry 95 95 96 Exam Narrative: General: Moderately ill-appearing male in the semi-Mota position in bed. Weight: 82.6 kg. BMI: 26.9. HEENT: PERRL, EOMI. Sclera anicteric. Tacky mucous membranes. Neck: Supple. Respiratory: Mild conversational dyspnea, speaking in 5 to 6 word sentences. Bronchial breath sounds heard throughout the left lung with high-pitched rales. Cardiovascular: Tachycardic with normal S1-S2. Gastrointestinal: Abdomen is soft, nontender, and nondistended with positive bowel sounds. Skin: Warm and dry. No rash or lesions on limited exam. Extremities: No cyanosis, clubbing, or edema. Radial and pedal pulses intact. Neurological: Alert. Cranial nerves 2-12 are grossly intact. No gross focal deficits to casual conversation. Psychiatric: Pleasant and cooperative with normal mood and affect. Judgment and insight intact. H&P: Results Labs Labs: Short CBC 01/12/25 Range/Units 10:51 WBC 45.1 H (4.5-10.0) K/mm3 Hgb 13.3 L (14.0-18.0) g/dL Hct 37.4 L (42.0-52.0) % Plt Count 323 (150-375) k/mm3 BMP 01/12/25 10:51 Sodium 135 L Potassium 2.8 L* Chloride 97 L Carbon Dioxide 24 BUN 30 H Creatinine 1.14 Glucose 150 H Calcium 8.4 Cardiac Enzymes 01/12/25 Range/Units 10:51 Troponin I < 0.012 (0.000-0.034) ng/mL Liver Function 01/12/25 Range/Units 10:51 Total Bilirubin 2.5 H (0.2-1.3) mg/dL AST 39 (17-59) U/L ALT 50 (6-50) U/L Alkaline Phosphatase 235 H (38-126) U/L Albumin 3.0 L (3.5-5.1) g/dL Imaging Head CT 01/12/25 11:44 IMPRESSION: 1. Normal brain. No acute intracranial process. Chest X-Ray 01/12/25 11:49 IMPRESSION: 1. Consolidation in the right upper and lower lobes consistent with pneumonia. Assessment and Plan Assessment and plan (1) Sepsis: Code(s): A41.9 - Sepsis, unspecified organism Status: Acute (2) Multifocal pneumonia: Code(s): J18.9 - Pneumonia, unspecified organism Status: Acute (3) Syncope: Code(s): R55 - Syncope and collapse Status: Acute (4) Hypokalemia: Code(s): E87.6 - Hypokalemia Status: Acute (5) History of influenza: Code(s): Z87.09 - Personal history of other diseases of the respiratory system Status: Acute (6) Hyperbilirubinemia: Code(s): E80.6 - Other disorders of bilirubin metabolism Status: Acute (7) Hyperthyroidism: Code(s): E05.90 - Thyrotoxicosis, unspecified without thyrotoxic crisis or storm Status: Acute (8) Tobacco dependence: Code(s): F17.200 - Nicotine dependence, unspecified, uncomplicated Status: Acute Plan The patient presented to the emergency department for evaluation after syncopal episode shower as detailed in HPI. Labs, imaging, EKG, and all reports were personally reviewed. Was diagnosed with influenza on Tuesday and reports ongoing nausea, vomiting, and diarrhea with poor oral intake. Blood pressures were soft on arrival but have responded to fluids and likely he is dehydrated which may very well have led to the syncopal episode. He will be monitored on telemetry to rule out cardiac dysrhythmia as his potassium was quite low. Potassium was replaced and will be monitored. Echocardiogram has been ordered. Monitor orthostatic vital signs. He meets sepsis criteria with hypotension, tachycardia, leukocytosis with bandemia, and lactic acidosis in the setting of pneumonia. Repeat lactic acid level is pending following a 3 L lactated Ringer bolus. Blood and sputum cultures have been ordered. Continue azithromycin, ceftriaxone, and vancomycin pending sputum culture and MRSA nasal swab. Patient to finish course of oseltamivir. Fractionate bilirubin and monitor. Continue methimazole and check TSH and T4. The rest of his home medications will be reviewed and resumed as appropriate. Smoking cessation is imperative and was discussed. He declines need for nicotine patch at this time. Findings and treatment plan were discussed with the patient. Questions were solicited and answered to satisfaction. The patient's medical management will be taken over by the hospitalist team in a.m. [facility] VTE Prophylaxis VTE prophylaxis: pharmacologic ordered Hospitalist MIPS Advance Care Plan I have confirmed that the patient's Advanced Care Plan is present, code status is documented, or surrogate decision maker is listed in patient medical record.: Yes Medication Reconciliation I have utilized all available resources to obtain, update and review the patients current medications (includes all prescriptions, OTC, herbals, cannabis, and nutritional supplements).: Yes
[2025-01-12 13:33] LABS: CRP 36.7 mg/dL (<1.0)
[2025-01-12] MEDS: VANCOMYCIN 2,000 MG/NS 500 ML 2,000 MG/500 ML BAG 250 MG IVPB (14:39)
[2025-01-12 15:36] LABS: Reflex Lactic Acid Yes or No Add Lactic
[2025-01-12 15:36] LABS: MRSA (PCR) NOT DETECTED (NOT DETECTE)
[2025-01-12] MEDS: ACETAMINOPHEN 325 MG TABLET 650 MG PO (15:39)
[2025-01-12 15:49] LABS: Bilirubin Direct 0.5 mg/dL (0-0.3); Bilirubin Indirect 0.4 mg/dL (0-1.1)
--- NOTE | 2025-01-12 16:21 | ADMGEN ---
This patient, Tomás Louis, was admitted to IMU Room 204-01. Patient/family oriented to hospital policies and general routines including ID bracelet, bed and alarms, visiting hours, pain management, procedures, bathroom and other care routines, personal items, smoking policy, room service/diet, and visiting hours. Information on how to activate the Rapid Response Team has been discussed. Patient/Family are encouraged to report perceived risks to care and to ask questions if they do not understand what they are told or what they should do.
[2025-01-12] MEDS: LACTATED RINGERS 1,000 ML 125 ML IV CONT (16:46)
[2025-01-12 19:19] LABS: Potassium 3.3 mmol/L (3.4-5.0)
[2025-01-12] MEDS: LEVALBUTEROL NEB 1.25 MG/3 ML 0.63 MG INHALATION (19:36)
[2025-01-12 19:54] LABS: Thyroid Stimulating Hormone Reflex < 0.015 uIU/mL (0.465-4.68)
[2025-01-12 20:44] LABS: Free T4 Free Thyroxine Reflex 2.95 ng/dL (0.78-2.19)
[2025-01-12] MEDS: POTASSIUM CHLORIDE 20 MEQ ER TABLET 40 MEQ PO (21:50)
[2025-01-13] VITALS (27 sets, daily range): BP systolic 117–137; BP diastolic 65–88; PULSE 67–116; RESP 18–24; TEMP 36.9–37.9; O2SAT 90–99
[2025-01-13] MEDS: LACTATED RINGERS 1,000 ML 125 ML IV CONT (01:20)
[2025-01-13] MEDS: LEVALBUTEROL NEB 1.25 MG/3 ML 0.63 MG INHALATION ×3 (02:04→13:56)
[2025-01-13] MEDS: IPRATROPIUM BR 0.02% INH SOLN 0.5 MG/2.5 ML VIAL INHALATION ×3 (02:05→13:56)
[2025-01-13 04:21] LABS: Hematocrit 29.6 % (42.0-52.0); Hemoglobin 10.6 g/dL (14.0-18.0); Mean Corpuscular HGB Conc 35.8 g/dl (32-36); Mean Corpuscular Hemoglobin 32.2 pg (26-34); Mean Platelet Volume 10.9 fl (7.4-10.4); Platelet Count Result 276 k/mm3 (150-375); Red Blood Count 3.29 M/mm3 (4.6-6.20); Red Cell Distribution Width 14.2 % (11.5-14.5); White Blood Count 44.8 K/mm3 (4.5-10.0)
[2025-01-13 04:43] LABS: Alanine Aminotransferase 29 U/L (6-50); Albumin Level 2.4 g/dL (3.5-5.1); Alkaline Phosphatase 171 U/L (38-126); Anion Gap 7 mmol/L (4-12); Aspartate Amino Transferase 28 U/L (17-59); Bilirubin,Total 1.9 mg/dL (0.2-1.3); Blood Urea Nitrogen 21 mg/dL (9-20); Calcium 7.7 mg/dL (8.4-10.2); Carbon Dioxide 25 mmol/L (22-30); Chloride 101 mmol/L (98-107); Estimated CRCL calculation 85 ml/min; Estimated Glomerular Filt Rate > 60; Glucose 123 mg/dL (65-110); Magnesium 1.9 mg/dL (1.6-2.3); Potassium 2.9 mmol/L (3.4-5.0); Sodium 133 mmol/L (137-145)
[2025-01-13 04:52] LABS: Anisocytosis 1+; Band Neutrophils Percent 13 % (0-6); Lymphocytes Absolute Manual 0.89 K/mm3 (1.1-4.5); Monocytes Absolute Manual 0.89 K/mm3 (0.1-0.90); Monocytes Percent Manual 2 % (3-9); Neutrophils Percent Manual 83 % (46-73); Platelet Estimate Adequate (Adequate); Schistocytes None Seen; Total Cells Counted 100
[2025-01-13] MEDS: VANCOMYCIN 1,500 MG/NS 500 ML 1,500 MG/500 ML BAG 250 MG IVPB ×2 (08:51→20:15)
[2025-01-13] MEDS: ENOXAPARIN 40 MG/0.4 ML SYRINGE SUB-Q (08:52)
--- NOTE | 2025-01-13 14:45 | P.PNIM_ITS ---
Progress Note: A&P Assessment and Plan (1) Sepsis: Code(s): A41.9 - Sepsis, unspecified organism Status: Acute (2) Multifocal pneumonia: Code(s): J18.9 - Pneumonia, unspecified organism Status: Acute (3) Syncope: Code(s): R55 - Syncope and collapse Status: Acute (4) Hypokalemia: Code(s): E87.6 - Hypokalemia Status: Acute (5) History of influenza: Code(s): Z87.09 - Personal history of other diseases of the respiratory system Status: Acute (6) Hyperbilirubinemia: Code(s): E80.6 - Other disorders of bilirubin metabolism Status: Acute (7) Hyperthyroidism: Code(s): E05.90 - Thyrotoxicosis, unspecified without thyrotoxic crisis or storm Status: Acute (8) Tobacco dependence: Code(s): F17.200 - Nicotine dependence, unspecified, uncomplicated Status: Acute Plan Sepsis from Pneumonia CXR showed RLL Blood and Sputum culture Rocephin and Azithromycin Syncope ECHo pending Troponin RLL pneumonia Fever resolving continue above care monitor Hypokalemia K 2.9 replaced and monitor Hyperthyroidism TSH <0.015, T4 2.95 Continue Methimazole Flu A Continue Tamiflu from outpatient monitor DVT prophylaxis on Sq Lovenox The patient presented to the emergency department for evaluation after syncopal episode shower as detailed in HPI. Labs, imaging, EKG, and all reports were personally reviewed. Was diagnosed with influenza on Tuesday and reports ongoing nausea, vomiting, and diarrhea with poor oral intake. Blood pressures were soft on arrival but have responded to fluids and likely he is dehydrated which may very well have led to the syncopal episode. He will be monitored on telemetry to rule out cardiac dysrhythmia as his potassium was quite low. Potassium was replaced and will be monitored. Echocardiogram has been ordered. Monitor orthostatic vital signs. He meets sepsis criteria with hypotension, tachycardia, leukocytosis with bandemia, and lactic acidosis in the setting of pneumonia. Repeat lactic acid level is pending following a 3 L lactated Ringer bolus. Blood and sputum cultures have been ordered. Continue azithromycin, ceftriaxone, and vancomycin pending sputum culture and MRSA nasal swab. Patient to finish course of oseltamivir. Fractionate bilirubin and monitor. Continue methimazole and check TSH and T4. The rest of his home medications will be reviewed and resumed as appropriate. Smoking cessation is imperative and was discussed. He declines need for nicotine patch at this time. Findings and treatment plan were discussed with the patient. Questions were solicited and answered to satisfaction. The patient's medical management will be taken over by the hospitalist team in a.m. Subjective Date/time seen: 01/13/25 14:45 Interval history: Comfortable at bedside Noted he was diagnosed with Flu on Tuesday and started on Tamiflu from then Review of Systems Review of Systems: 12 systems were reviewed and are negativ e except for as per HPI. Exam Narrative: General: Moderately ill-appearing male in the semi-Mota position in bed. Weight: 82.6 kg. BMI: 26.9. HEENT: PERRL, EOMI. Sclera anicteric. Tacky mucous membranes. Neck: Supple. Respiratory: Mild conversational dyspnea, speaking in 5 to 6 word sentences. Bronchial breath sounds heard throughout the left lung with high-pitched rales. Cardiovascular: Tachycardic with normal S1-S2. Gastrointestinal: Abdomen is soft, nontender, and nondistended with positive bowel sounds. Skin: Warm and dry. No rash or lesions on limited exam. Extremities: No cyanosis, clubbing, or edema. Radial and pedal pulses intact. Neurological: Alert. Cranial nerves 2-12 are grossly intact. No gross focal deficits to casual conversation. Psychiatric: Pleasant and cooperative with normal mood and affect. Judgment and insight intact. Objective Data Vital Signs Vital Signs: Vital Signs - 24 hr 01/12/25 15:28 01/12/25 15:33 01/12/25 15:39 Temperature 100.5 F H 100.5 F H Pulse Rate 118 H 121 H Respiratory Rate 30 H 22 H Blood Pressure 124/73 172/144 H Pulse Oximetry 96 100 Oxygen Delivery 01/12/25 16:04 01/12/25 18:00 01/12/25 19:35 Temperature 100.5 F H Pulse Rate 121 H 117 H Respiratory Rate 22 H Blood Pressure 172/144 H Pulse Oximetry 100 95 Oxygen Delivery Room Air 01/12/25 19:37 01/12/25 19:45 01/12/25 19:45 Temperature Pulse Rate 97 95 111 H Respiratory Rate 20 20 28 H Blood Pressure Pulse Oximetry 97 Oxygen Delivery Room Air 01/12/25 20:00 01/12/25 20:00 01/12/25 20:00 Temperature 99.3 F Pulse Rate 111 H Respiratory Rate 28 H Blood Pressure 135/68 135/68 129/72 Pulse Oximetry 97 Oxygen Delivery 01/12/25 20:00 01/12/25 20:00 01/12/25 22:00 Temperature Pulse Rate 110 H 116 H Respiratory Rate Blood Pressure 122/64 Pulse Oximetry Oxygen Delivery 01/12/25 23:46 01/13/25 00:00 01/13/25 00:00 Temperature 98.9 F Pulse Rate 115 H 115 H 111 H Respiratory Rate 24 H 24 H Blood Pressure 137/73 Pulse Oximetry 95 95 Oxygen Delivery Room Air 01/13/25 02:00 01/13/25 02:05 01/13/25 02:22 Temperature Pulse Rate 114 H 116 H 111 H Respiratory Rate 20 20 Blood Pressure Pulse Oximetry Oxygen Delivery 01/13/25 04:00 01/13/25 04:00 01/13/25 04:40 Temperature 98.5 F Pulse Rate 110 H 113 H 110 H Respiratory Rate 22 H 22 H Blood Pressure 125/70 Pulse Oximetry 95 95 Oxygen Delivery Room Air 01/13/25 06:00 01/13/25 08:00 01/13/25 08:00 Temperature 98.6 F Pulse Rate 101 H 100 100 Respiratory Rate 20 Blood Pressure 117/73 117/73 Pulse Oximetry 96 96 Oxygen Delivery 01/13/25 08:00 01/13/25 08:13 01/13/25 08:14 Temperature Pulse Rate 100 106 H 115 H Respiratory Rate Blood Pressure 130/70 120/88 Pulse Oximetry 94 99 Oxygen Delivery 01/13/25 08:45 01/13/25 08:45 01/13/25 08:55 Temperature Pulse Rate 94 108 H Respiratory Rate 20 20 Blood Pressure Pulse Oximetry 90 Oxygen Delivery Room Air 01/13/25 10:00 01/13/25 11:22 01/13/25 13:58 Temperature 99.1 F Pulse Rate 115 H 97 102 H Respiratory Rate 24 H 20 Blood Pressure 129/65 Pulse Oximetry 94 Oxygen Delivery 01/13/25 14:04 Temperature Pulse Rate 103 H Respiratory Rate 20 Blood Pressure Pulse Oximetry Oxygen Delivery Intake/Output Intake/Output: Intake & Output 01/10/25 01/11/25 01/12/25 01/13/25 23:59 23:59 23:59 23:59 Intake Total 4780 1632 Output Total 730 450 Balance 4050 1182 Meds/Results Medications: Active Medications Generic Name Dose Route Start Last Admin Trade Name Freq PRN Reason Stop Dose Admin Acetaminophen 650 mg 01/12/25 13:52 01/12/25 15:39 Acetaminophen 325 Mg Tablet PO 650 mg Q6H PRN Administration Mild Pain (1-3) or Fever Enoxaparin Sodium 40 mg 01/13/25 09:00 01/13/25 08:52 Enoxaparin 40 Mg/0.4 Ml Syringe SUB-Q 40 mg DAILY JASON Administration Ceftriaxone Sodium 1 gm in 50 mls @ 100 mls/hr 01/12/25 14:00 01/12/25 14:25 Rocephin 1 Gm/Ns 50 Ml IVPB Not Given Q24H JASON Azithromycin 500 mg in 250 mls @ 250 mls/hr 01/12/25 14:00 01/12/25 14:25 Zithromax IVPB Not Given Q24H JASON Vancomycin HCl 1,500 mg in 500 mls @ 250 mls/hr 01/13/25 08:00 01/13/25 08:51 Vancomycin 1,500 Mg/Ns 500 Ml IVPB 250 mls/hr Q12H JASON Administration Ipratropium [place] 0.5 mg 01/13/25 02:00 01/13/25 13:56 Ipratropium Br 0.02% Inh Soln 0.5 Mg/2.5 Ml Vial INHALATION 0.5 mg Q6HRT JASON Administration Levalbuterol HCl 0.63 mg 01/13/25 02:00 01/13/25 13:56 Levalbuterol Neb 1.25 Mg/3 Ml INHALATION 0.63 mg Q6HRT JASON Administration Methimazole 5 mg 01/13/25 09:00 01/13/25 09:00 Methimazole 5 Mg Tab PO Not Given DAILY JASON Perflutren Lipid Microsphere 0 ml 01/12/25 13:52 Perflutren Lipid Microspheres 1.5 Ml Vial Diluted To 10 Ml Total Volume IV PUSH 01/15/25 13:53 ONCE PRN adequate visualization Protocol Radiology Results: ITS Impressions Head CT 01/12/25 11:44 IMPRESSION: 1. Normal brain. No acute intracranial process. Chest X-Ray 01/12/25 11:49 IMPRESSION: 1. Consolidation in the right upper and lower lobes consistent with pneumonia. Labs Labs: Laboratory Results - last 24 hr 01/12/25 01/12/25 01/12/25 12:29 13:49 19:05 WBC RBC Hgb Hct MCV MCH MCHC RDW Plt Count MPV Immature Gran % (Auto) Neut % (Auto) Lymph % (Auto) [place] % (Auto) Eos % (Auto) Baso % (Auto) Lymph # (Auto) [place] # (Auto) Eos # (Auto) Baso # (Auto) Abs Immat Gran (auto) Absolute Neuts (auto) Absolute Nucleated RBC Total Counted Neutrophils % (Manual) Band Neutrophils % Lymphocytes % (Manual) Monocytes % (Manual) Nucleated RBC % Abs Neuts (Manual) Abs Lymphs (Manual) Abs Monocytes (Manual) Platelet Estimate Anisocytosis Schistocytes Sodium Potassium 3.3 L Chloride Carbon Dioxide Anion Gap BUN Creatinine Estim Creat Clear Calc Estimated GFR Glucose Lactic Acid 2.0 Calcium Magnesium Total Bilirubin Direct Bilirubin 0.5 H Indirect Bilirubin 0.4 AST ALT Alkaline Phosphatase Total Protein Albumin TSH (Reflex) < 0.015 L Free T4 2.95 H Nasal MRSA (PCR) Not detected 01/13/25 03:54 WBC 44.8 H RBC 3.29 L Hgb 10.6 L Hct 29.6 L MCV 90.0 MCH 32.2 MCHC 35.8 RDW 14.2 Plt Count 276 MPV 10.9 H Immature Gran % (Auto) Utilization Management Manager Neut % (Auto) Utilization Management Manager Lymph % (Auto) Utilization Management Manager [place] % (Auto) Utilization Management Manager Eos % (Auto) Utilization Management Manager Baso % (Auto) Utilization Management Manager Lymph # (Auto) Utilization Management Manager [place] # (Auto) Utilization Management Manager Eos # (Auto) Utilization Management Manager Baso # (Auto) Utilization Management Manager Abs Immat Gran (auto) Utilization Management Manager Absolute Neuts (auto) Utilization Management Manager Absolute Nucleated RBC Utilization Management Manager Total Counted 100 Neutrophils % (Manual) 83 H Band Neutrophils % 13 H Lymphocytes % (Manual) 2.0 L Monocytes % (Manual) 2 L Nucleated RBC % Utilization Management Manager Abs Neuts (Manual) 43.00 H Abs Lymphs (Manual) 0.89 L Abs Monocytes (Manual) 0.89 Platelet Estimate Adequate Anisocytosis 1+ Schistocytes None seen Sodium 133 L Potassium 2.9 L Chloride 101 Carbon Dioxide 25 Anion Gap 7 BUN 21 H Creatinine 0.88 Estim Creat Clear Calc 85 Estimated GFR > 60 Glucose 123 H Lactic Acid Calcium 7.7 L Magnesium 1.9 Total Bilirubin 1.9 H Direct Bilirubin Indirect Bilirubin AST 28 ALT 29 Alkaline Phosphatase 171 H Total Protein 6.0 L Albumin 2.4 L TSH (Reflex) Free T4 Nasal MRSA (PCR) Quality VTE Prophylaxis VTE prophylaxis: pharmacologic ordered
[2025-01-13] MEDS: AZITHROMYCIN 500 MG/NS 250 ML 500 MG/250 ML BAG 250 MG IVPB (15:18)
[2025-01-13] MEDS: ALBUMIN HUMAN 25% 25 GM/100 ML 100 ML IVPB (15:21)
--- NOTE | 2025-01-13 21:13 | PCRCNOTE ---
Window of time for administration has passed. See next scheduled administration.
[2025-01-13] MEDS: ACETAMINOPHEN 325 MG TABLET 650 MG PO (21:37)
[2025-01-13] MEDS: MELATONIN 5 MG TABLET PO (21:37)
[2025-01-14] VITALS (17 sets, daily range): BP systolic 119–146; BP diastolic 72–89; PULSE 50–103; RESP 16–20; TEMP 37.2–37.4; O2SAT 94–98
[2025-01-14] MEDS: IPRATROPIUM BR 0.02% INH SOLN 0.5 MG/2.5 ML VIAL INHALATION ×4 (02:15→21:50)
[2025-01-14 07:33] LABS: Basophils Absolute Auto 0.1 K/mm3 (0.0-0.1); Basophils Percent Auto 0.4 % (0.2-1.2); Eosinophils Absolute Auto 0.1 K/mm3 (0-0.3); Eosinophils Percent Auto 0.3 % (0-4.4); Hematocrit 30.9 % (42.0-52.0); Hemoglobin 10.9 g/dL (14.0-18.0); Immature Granulocyte Percent A 3.1 % (0-0.5); Lymphocytes Absolute Auto 1.97 K/mm3 (0.9-3.2); Lymphocytes Percent Auto 10.1 % (18.3-44.2); Mean Corpuscular HGB Conc 35.3 g/dl (32-36); Mean Corpuscular Hemoglobin 32.2 pg (26-34); Mean Corpuscular Volume 91.4 fl (80-100); Mean Platelet Volume 10.9 fl (7.4-10.4); Monocytes Absolute Auto 0.9 K/mm3 (0.1-0.6); Monocytes Percent Auto 4.6 % (2.6-8.5); Neutrophils Absolute Auto 15.8 K/mm3 (1.3-6.7); Neutrophils Percent Auto 81.5 % (45.5-73.1); Platelet Count Result 306 k/mm3 (150-375); Red Blood Count 3.38 M/mm3 (4.6-6.20); Red Cell Distribution Width 14.6 % (11.5-14.5); White Blood Count 19.4 K/mm3 (4.5-10.0)
[2025-01-14 07:52] LABS: Alanine Aminotransferase 64 U/L (6-50); Albumin Level 2.6 g/dL (3.5-5.1); Alkaline Phosphatase 132 U/L (38-126); Anion Gap 8 mmol/L (4-12); Aspartate Amino Transferase 77 U/L (17-59); Blood Urea Nitrogen 21 mg/dL (9-20); Calcium 8.2 mg/dL (8.4-10.2); Carbon Dioxide 27 mmol/L (22-30); Chloride 104 mmol/L (98-107); Estimated CRCL calculation 109 ml/min; Estimated Glomerular Filt Rate > 60; Glucose 94 mg/dL (65-110); Potassium 2.9 mmol/L (3.4-5.0); Sodium 139 mmol/L (137-145)
[2025-01-14] MEDS: LEVALBUTEROL NEB 1.25 MG/3 ML 0.63 MG INHALATION ×3 (07:53→21:50)
[2025-01-14 07:58] LABS: Vancomycin Trough 11.4 ug/mL (10.0-20.0)
[2025-01-14 08:01] LABS: Troponin I < 0.012 ng/mL (0.000-0.034)
[2025-01-14] MEDS: methiMAzole 5 MG TAB PO (08:24)
[2025-01-14] MEDS: ENOXAPARIN 40 MG/0.4 ML SYRINGE SUB-Q (08:25)
[2025-01-14] MEDS: VANCOMYCIN 1,750 MG/NS 500 ML 1,750 MG/500 ML BAG 250 MG IVPB (08:26)
--- NOTE | 2025-01-14 13:39 | PM.IMPN ---
Progress Note: A&P Assessment and Plan (1) Sepsis: Code(s): A41.9 - Sepsis, unspecified organism Status: Acute (2) Multifocal pneumonia: Code(s): J18.9 - Pneumonia, unspecified organism Status: Acute (3) Syncope: Code(s): R55 - Syncope and collapse Status: Acute (4) Hypokalemia: Code(s): E87.6 - Hypokalemia Status: Acute (5) History of influenza: Code(s): Z87.09 - Personal history of other diseases of the respiratory system Status: Acute (6) Hyperbilirubinemia: Code(s): E80.6 - Other disorders of bilirubin metabolism Status: Acute (7) Hyperthyroidism: Code(s): E05.90 - Thyrotoxicosis, unspecified without thyrotoxic crisis or storm Status: Acute (8) Tobacco dependence: Code(s): F17.200 - Nicotine dependence, unspecified, uncomplicated Status: Acute Plan Sepsis from Pneumonia CXR showed RLL Blood and Sputum culture Rocephin and Azithromycin Syncope ECHO pending Troponin negative may need holter monitor if ECHO is normal RLL pneumonia Fever resolved continue above care monitor Hypokalemia K 2.9 replaced and monitor Hyperthyroidism TSH <0.015, T4 2.95 Continue Methimazole Flu A Continue Tamiflu from outpatient monitor DVT prophylaxis on Sq Lovenox Subjective Date/time seen: 01/14/25 13:39 Interval history: Comfortable at bedside awaiting ECHO for discharge Review of Systems Review of Systems: 12 systems were reviewed and are negative except for as per HPI. Exam Narrative: General: Moderately ill-appearing male in the semi-Mota position in bed. Weight: 82.6 kg. BMI: 26.9. HEENT: PERRL, EOMI. Sclera anicteric. Tacky mucous membranes. Neck: Supple. Respiratory: Mild conversational dyspnea, speaking in 5 to 6 word sentences. Bronchial breath sounds heard throughout the left lung with high-pitched rales. Cardiovascular: Tachycardic with normal S1-S2. Gastrointestinal: Abdomen is soft, nontender, and nondistended with positive bowel sounds. Skin: Warm and dry. No rash or lesions on limited exam. Extremities: No cyanosis, clubbing, or edema. Radial and pedal pulses intact. Neurological: Alert. Cranial nerves 2-12 are grossly intact. No gross focal deficits to casual conversation. Psychiatric: Pleasant and cooperative with normal mood and affect. Judgment and insight intact. Objective Data Vital Signs Vital Signs: Vital Signs - 24 hr 01/13/25 13:58 01/13/25 14:00 01/13/25 14:04 Temperature Pulse Rate 102 H 102 H 103 H Respiratory Rate 20 20 Blood Pressure Pulse Oximetry Oxygen Delivery 01/13/25 16:00 01/13/25 16:00 01/13/25 16:12 Temperature 99.4 F Pulse Rate 103 H 98 104 H Respiratory Rate 20 Blood Pressure 129/69 Pulse Oximetry 95 Oxygen Delivery 01/13/25 20:00 01/13/25 20:15 01/13/25 20:16 Temperature Pulse Rate 67 80 77 Respiratory Rate 18 Blood Pressure 124/75 Pulse Oximetry 96 Oxygen Delivery Room Air 01/13/25 20:16 01/13/25 20:20 01/13/25 20:23 Temperature 100.2 F H Pulse Rate 77 96 80 Respiratory Rate 18 Blood Pressure 124/75 133/79 126/81 Pulse Oximetry 96 Oxygen Delivery 01/13/25 21:37 01/13/25 22:37 01/14/25 00:04 Temperature 100.2 F H 99.6 F Pulse Rate 50 L Respiratory Rate Blood Pressure Pulse Oximetry Oxygen Delivery 01/14/25 02:15 01/14/25 02:25 01/14/25 04:00 Temperature Pulse Rate 102 H 103 H 51 L Respiratory Rate 20 20 Blood Pressure Pulse Oximetry Oxygen Delivery 01/14/25 04:49 01/14/25 07:55 01/14/25 07:55 Temperature 98.9 F Pulse Rate 65 71 Respiratory Rate 16 20 Blood Pressure 146/89 H Pulse Oximetry 94 95 Oxygen Delivery Room Air 01/14/25 08:30 01/14/25 10:42 Temperature Pulse Rate 60 Respiratory Rate Blood Pressure Pulse Oximetry Oxygen Delivery Room Air Intake/Output Intake/Output: Intake & Output 01/11/25 01/12/25 01/13/25 01/14/25 23:59 23:59 23:59 23:59 Intake Total 4780 2992 436 Output Total 730 450 Balance 4050 2542 436 Meds/Results Medications: Active Medications Generic Name Dose Route Start Last Admin Trade Name Freq PRN Reason Stop Dose Admin Acetaminophen 650 mg 01/12/25 13:52 02/23/25 21:37 Acetaminophen 325 Mg Tablet PO 650 mg Q6H PRN Administration Mild Pain (1-3) or Fever Azithromycin 500 mg 01/15/25 12:00 Azithromycin 250 Mg Tablet PO 01/17/25 09:01 DAILY [facility] Enoxaparin Sodium 40 mg 01/13/25 09:00 01/14/25 08:25 Enoxaparin 40 Mg/0.4 Ml Syringe SUB-Q 40 mg DAILY JASON Administration Ceftriaxone Sodium 1 gm in 50 mls @ 100 mls/hr 01/12/25 14:00 01/13/25 15:11 Rocephin 1 Gm/Ns 50 Ml IVPB 100 mls/hr Q24H JASON Administration Ipratropium [place] 0.5 mg 01/13/25 02:00 01/14/25 07:53 Ipratropium Br 0.02% Inh Soln 0.5 Mg/2.5 Ml Vial INHALATION 0.5 mg Q6HRT JASON Administration Levalbuterol HCl 0.63 mg 01/13/25 02:00 01/14/25 07:53 Levalbuterol Neb 1.25 Mg/3 Ml INHALATION 0.63 mg Q6HRT [facility] Administration Melatonin 5 mg 01/13/25 20:35 01/13/25 21:37 Melatonin 5 Mg Tablet PO 5 mg HS PRN Administration insomnia Methimazole 5 mg 01/13/25 09:00 01/14/25 08:24 Methimazole 5 Mg Tab PO 5 mg DAILY JASON Administration Perflutren Lipid Microsphere 0 ml 01/12/25 13:52 Perflutren Lipid Microspheres 1.5 Ml Vial Diluted To 10 Ml Total Volume IV PUSH 01/15/25 13:53 ONCE PRN adequate visualization Protocol Radiology Results: ITS Impressions Head CT 01/12/25 11:44 IMPRESSION: 1. Normal brain. No acute intracranial process. Chest X-Ray 01/12/25 11:49 IMPRESSION: 1. Consolidation in the right upper and lower lobes consistent with pneumonia. Labs Labs: Laboratory Results - last 24 hr 01/14/25 07:05 WBC 19.4 H RBC 3.38 L Hgb 10.9 L Hct 30.9 L MCV 91.4 MCH 32.2 MCHC 35.3 RDW 14.6 H Plt Count 306 MPV 10.9 H Immature Gran % (Auto) 3.1 H Neut % (Auto) 81.5 H Lymph % (Auto) 10.1 L [place] % (Auto) 4.6 Eos % (Auto) 0.3 Baso % (Auto) 0.4 Lymph # (Auto) 1.97 [place] # (Auto) 0.9 H Eos # (Auto) 0.1 Baso # (Auto) 0.1 Abs Immat Gran (auto) 0.60 H Absolute Neuts (auto) 15.8 H Absolute Nucleated RBC 0.000 Nucleated RBC % 0.0 Sodium 139 Potassium 2.9 L Chloride 104 Carbon Dioxide 27 Anion Gap 8 BUN 21 H Creatinine 0.67 L Estim Creat Clear Calc 109 Estimated GFR > 60 Glucose 94 Calcium 8.2 L Magnesium 2.0 Total Bilirubin 1.0 AST 77 H ALT 64 H Alkaline Phosphatase 132 H Troponin I < 0.012 Total Protein 6.0 L Albumin 2.6 L Vancomycin Trough 11.4 Quality VTE Prophylaxis VTE prophylaxis: pharmacologic ordered
--- NOTE | 2025-01-14 13:53 | ECHO_ITS ---
Patient Info Name: Tomás Louis Age: 54 years : 1970 Gender: Male Ht: 69 in Wt: 182 lbs BSA: 2.02 m2 HR: 65 bpm BP: 146 / 89 mmHg Technical Quality: Fair Exam Date: 01/14/2025 1:28 PM Exam Location: Echo Lab Patient Status: Inpatient Admit Date: 01/12/2025 Staff Ordering Physician: Ofelia Funk PA-C Print Shop Helper: Clinton Jimenez RDCS Attending Provider: Baldo Sherwood MD Referring Physician: Good ADAMSON; Exam Type: CA echo doppler color flow Study Info Indications - SYNCOPE Complete two-dimensional, color flow and Doppler transthoracic echocardiogram is performed. Summary 1. Complete two-dimensional, color flow and Doppler transthoracic echocardiogram is performed. 2. Left ventricular systolic function is normal, estimated at 60-65%. 3. The left ventricular diastolic function is indeterminate. 4. There is trace mitral valve regurgitation. 5. There is mild tricuspid valve regurgitation. 6. Mild pulmonary hypertension, estimated pulmonary arterial systolic pressure is 44 mmHg. Left Ventricle Left ventricular chamber dimension is normal. Left ventricular systolic function is normal, estimated at 60-65%. There is no increased left ventricular wall thickness. Left ventricular septal wall motion is normal. The left ventricular diastolic function is indeterminate. Right Ventricle Right ventricular chamber dimension is normal. Right ventricular systolic function is normal. Left Atria Left atrial chamber dimension is normal. Right Atria Right atrial chamber dimension is normal. Aortic Valve The aortic valve is probable trileaflet. There is mild aortic valve sclerosis. There is no aortic valve stenosis. There is no aortic valve regurgitation. Pulmonic Valve The pulmonic valve is normal. There is no pulmonic valve stenosis. There is no pulmonic regurgitation. Mitral Valve The mitral valve has normal leaflets. There is no mitral valve stenosis. There is trace mitral valve regurgitation. Tricuspid Valve The tricuspid valve leaflets are normal. There is no significant tricuspid valve stenosis. There is mild tricuspid valve regurgitation. Mild pulmonary hypertension, estimated pulmonary arterial systolic pressure is 44 mmHg. Pericardium/Pleural The pericardium appears normal. There is no pericardial effusion. Inferior Vena Cava Dilated inferior vena cava with <50% collapse upon inspiration consistent with elevated right atrial pressure, 15 mmHg. Aorta The aortic root size at the sinus of Valsalva is normal. The prox ascending aorta size is normal. Left Ventricular Outflow Tract Name Value Normal LVOT 2D LVOT Diameter 2.0 cm LVOT Doppler LVOT Peak Gradient 8 mmHg LVOT Mean Gradient 4 mmHg LVOT VTI 30 cm LVOT VTI/AV VTI Ratio 0.7 LVOT Stroke Volume 97 ml LVOT CO 5.9 l/min LVOT CI 2.9 l/min/m2 Pulmonic Valve Name Value Normal RVOT Doppler RVOT Peak Gradient 4 mmHg PV Doppler PV Peak Gradient 4 mmHg Mitral Valve Name Value Normal MV Doppler MV Peak Gradient 7 mmHg MV Mean Gradient 3 mmHg MV Decel [place] 797 cm/s2 MV PHT 36 ms MV Area (PHT) 6.2 cm2 4.0-5.0 MV Area (Cont Eq VTI) 2.7 cm2 MV Diastolic Function MV E Peak Velocity 98 cm/s MV A Peak Velocity 88 cm/s MV E/A 1.1 MV Decel Time 122 ms MV Annular TDI MV E/e' (Septal) 8.1 <=8.0 MV E/e' (Lateral) 5.2 <=8.0 MV E/e' (Average) 6.7 Tricuspid Valve Name Value Normal TV Regurgitation Doppler TR Peak Velocity 270 cm/s TR Peak Gradient 27 mmHg Estimated PAP/RSVP RA Pressure 15 mmHg <=5 PA Systolic Pressure 44 mmHg <36 RV Systolic Pressure 44 mmHg <36 Aorta Name Value Normal Ascending Aorta Ao Root Diameter (MM) 3.6 cm Ao Root Diam Index (MM) 1.8 cm/m2 Aortic Valve Name Value Normal AV Doppler AV Peak Velocity 176 cm/s AV Peak Gradient 12 mmHg AV Mean Gradient 7 mmHg AV VTI 42 cm AV Area (Cont Eq VTI) 2.3 cm2 >=3.0 AV Area (Cont Eq Elijah) 2.5 cm2 AV Regurgitation 2D LVOT Area 3.2 cm2 Ventricles Name Value Normal LV Dimensions 2D/MM IVS Diastolic Thickness (2D) 1.5 cm 0.6-1.0 LVID Diastole (2D) 5.4 cm 4.2-5.8 LVIW Diastolic Thickness (2D) 1.0 cm 0.6-1.0 LVID Systole (2D) 3.5 cm 2.5-4.0 LVOT Diameter 2.0 cm LV Mass (2D Cubed) 281.57 g 88.00-224.00 LV Mass Index (2D Cubed) 139 g/m2 49-115 Relative Wall Thickness (2D) 0.38 LV Fractional Shortening/Ejection Fraction 2D/MM LV Fractional Shortening (2D) 35 % 25-43 LV EF (2D Teicholz) 64 % 52-72 LV Diastolic Volume (4C MOD) 112 ml LV EF (4C MOD) 67 % LV Diastolic Volume (2C MOD) 124 ml LV EF (2C MOD) 61 % LV Diastolic Volume (BP MOD) 121 ml 62-150 LV Diastolic Volume Index (BP MOD) 60 ml/m2 34-74 LV Systolic Volume (BP MOD) 43 ml 21-61 LV Systolic Volume Index (BP MOD) 21 ml/m2 11-31 LV EF (BP MOD) 65 % 52-72 LV Diastolic Length (4C) 7.9 cm LV Systolic Length (4C) 6.2 cm LV Stroke Volume (4C MOD) 75 ml Atria Name Value Normal LA Dimensions LA Dimension (MM) 3.4 cm 3.0-4.1 LA Volume (4C A-L) 59 ml LA Volume (BP A-L) 64 ml RA Dimensions RA Area (4C) 24.1 cm2 <=18.0 Report Signatures
[2025-01-14] MEDS: POTASSIUM CHLORIDE 20 MEQ PACKET (FOR LIQUID) 40 MEQ PO (14:55)
[2025-01-14] MEDS: POTASSIUM CHLORIDE INJ 40 MEQ in SODIUM CHLORIDE 0.9% IV 500 ML 130 MEQ IVPB (14:55)
[2025-01-14] MEDS: MELATONIN 5 MG TABLET PO (20:56)
[2025-01-15] VITALS (15 sets, daily range): BP systolic 139–150; BP diastolic 77–85; PULSE 49–83; RESP 14–18; TEMP 36.6–37.1; O2SAT 95–98
[2025-01-15] MEDS: IPRATROPIUM BR 0.02% INH SOLN 0.5 MG/2.5 ML VIAL INHALATION ×3 (01:35→14:16)
[2025-01-15] MEDS: LEVALBUTEROL NEB 1.25 MG/3 ML 0.63 MG INHALATION ×3 (01:35→14:16)
--- NOTE | 2025-01-15 07:36 | PM.IMPN ---
Progress Note: A&P Assessment and Plan (1) Sepsis: Code(s): A41.9 - Sepsis, unspecified organism Status: Acute (2) Multifocal pneumonia: Code(s): J18.9 - Pneumonia, unspecified organism Status: Acute (3) Syncope: Code(s): R55 - Syncope and collapse Status: Acute (4) Hypokalemia: Code(s): E87.6 - Hypokalemia Status: Acute (5) History of influenza: Code(s): Z87.09 - Personal history of other diseases of the respiratory system Status: Acute (6) Hyperbilirubinemia: Code(s): E80.6 - Other disorders of bilirubin metabolism Status: Acute (7) Hyperthyroidism: Code(s): E05.90 - Thyrotoxicosis, unspecified without thyrotoxic crisis or storm Status: Acute (8) Tobacco dependence: Code(s): F17.200 - Nicotine dependence, unspecified, uncomplicated Status: Acute Plan Sepsis from Pneumonia CXR showed RLL Blood: No growth so far; and Sputum culture ; mixed bacterial devora Continue Rocephin and Azithromycin Syncope ECHO 1. Complete two-dimensional, color flow and Doppler transthoracic echocardiogram is performed. 2. Left ventricular systolic function is normal, estimated at 60-65%. 3. The left ventricular diastolic function is indeterminate. 4. There is trace mitral valve regurgitation. 5. There is mild tricuspid valve regurgitation. 6. Mild pulmonary hypertension, estimated pulmonary arterial systolic pressure is 44 mmHg. Troponin negative may need cardiac event recorder Consult lithographic retoucher apprentice for evaluation treatment RLL pneumonia Fever resolved continue above care monitor Hypokalemia K 2.8 Replete potassium chloride 40 mEq p.o. and 40 mEq iv once Follow-up BMP Hyperthyroidism TSH <0.015, T4 2.95 Continue Methimazole Flu A Continue Tamiflu from outpatient monitor DVT prophylaxis on Sq Lovenox Subjective Date/time seen: 01/15/25 07:36 Interval history: Patient is afebrile, blood pressure stable Leukocytosis improving 14,600 Labs reviewed, potassium 2.8. Will replete with potassium chloride 40 mEq p.o. and 40 mg IV Exam Narrative: General: Moderately ill-appearing male in the semi-Mota position in bed. Weight: 82.6 kg. BMI: 26.9. HEENT: PERRL, EOMI. Sclera anicteric. Tacky mucous membranes. Neck: Supple. Respiratory: Mild conversational dyspnea, speaking in 5 to 6 word sentences. Bronchial breath sounds heard throughout the left lung with high-pitched rales. Cardiovascular: Tachycardic with normal S1-S2. Gastrointestinal: Abdomen is soft, nontender, and nondistended with positive bowel sounds. Skin: Warm and dry. No rash or lesions on limited exam. Extremities: No cyanosis, clubbing, or edema. Radial and pedal pulses intact. Neurological: Alert. Cranial nerves 2-12 are grossly intact. No gross focal deficits to casual conversation. Psychiatric: Pleasant and cooperative with normal mood and affect. Judgment and insight intact. Objective Data Vital Signs Vital Signs: Vital Signs - 24 hr 01/14/25 07:55 01/14/25 07:55 01/14/25 08:30 Temperature Pulse Rate 71 Respiratory Rate 20 Blood Pressure Pulse Oximetry 95 Oxygen Delivery Room Air Room Air 01/14/25 10:42 01/14/25 14:00 01/14/25 14:00 Temperature 99.3 F 99.3 F Pulse Rate 60 66 66 Respiratory Rate 20 20 Blood Pressure 123/75 123/75 Pulse Oximetry 97 97 Oxygen Delivery 01/14/25 14:05 01/14/25 14:10 01/14/25 15:23 Temperature 99.3 F Pulse Rate 67 72 72 Respiratory Rate 20 20 Blood Pressure 119/75 124/72 Pulse Oximetry 96 96 Oxygen Delivery 01/14/25 15:38 01/14/25 16:00 01/14/25 20:00 Temperature Pulse Rate 72 77 66 Respiratory Rate 20 Blood Pressure Pulse Oximetry Oxygen Delivery 01/14/25 20:50 01/14/25 20:58 01/14/25 21:50 Temperature 98.9 F Pulse Rate 65 77 Respiratory Rate 16 16 Blood Pressure 143/85 H Pulse Oximetry 98 Oxygen Delivery Room Air 01/14/25 22:09 01/15/25 00:00 01/15/25 01:35 Temperature Pulse Rate 77 59 L 77 Respiratory Rate 16 16 Blood Pressure Pulse Oximetry Oxygen Delivery 01/15/25 01:47 01/15/25 04:00 01/15/25 05:35 Temperature 98.3 F Pulse Rate 77 49 L 54 L Respiratory Rate 16 18 Blood Pressure 140/80 Pulse Oximetry 96 Oxygen Delivery Intake/Output Intake/Output: Intake & Output 01/12/25 01/13/25 01/14/25 01/15/25 23:59 23:59 23:59 23:59 Intake Total 4780 3042 1916 500 Output Total 730 450 Balance 4050 2592 1916 500 Meds/Results Medications: Active Medications Generic Name Dose Route Start Last Admin Trade Name Freq PRN Reason Stop Dose Admin Acetaminophen 650 mg 01/12/25 13:52 01/13/25 21:37 Acetaminophen 325 Mg Tablet PO 650 mg Q6H PRN Administration Mild Pain (1-3) or Fever Azithromycin 500 mg 01/15/25 12:00 Azithromycin 250 Mg Tablet PO 01/17/25 09:01 DAILY JASON Enoxaparin Sodium 40 mg 01/13/25 09:00 01/14/25 08:25 Enoxaparin 40 Mg/0.4 Ml Syringe SUB-Q 40 mg DAILY JASON Administration Ceftriaxone Sodium 1 gm in 50 mls @ 100 mls/hr 01/12/25 14:00 01/14/25 14:55 Rocephin 1 Gm/Ns 50 Ml IVPB 100 mls/hr Q24H JASON Administration Ipratropium [place] 0.5 mg 01/13/25 02:00 01/15/25 01:35 Ipratropium Br 0.02% Inh Soln 0.5 Mg/2.5 Ml Vial INHALATION 0.5 mg Q6HRT JASON Administration Levalbuterol HCl 0.63 mg 01/13/25 02:00 01/15/25 01:35 Levalbuterol Neb 1.25 Mg/3 Ml INHALATION 0.63 mg Q6HRT JASON Administration Melatonin 5 mg 01/13/25 20:35 01/14/25 20:56 Melatonin 5 Mg Tablet PO 5 mg HS PRN Administration insomnia Methimazole 5 mg 01/13/25 09:00 01/14/25 08:24 Methimazole 5 Mg Tab PO 5 mg DAILY JASON Administration Perflutren Lipid Microsphere 0 ml 01/12/25 13:52 Perflutren Lipid Microspheres 1.5 Ml Vial Diluted To 10 Ml Total Volume IV PUSH 01/15/25 13:53 ONCE PRN adequate visualization Protocol Radiology Results: ITS Impressions Head CT 01/12/25 11:44 IMPRESSION: 1. Normal brain. No acute intracranial process. Chest X-Ray 01/12/25 11:49 IMPRESSION: 1. Consolidation in the right upper and lower lobes consistent with pneumonia. Labs Labs: Laboratory Results - last 24 hr 01/14/25 07:05 WBC 19.4 H RBC 3.38 L Hgb 10.9 L Hct 30.9 L MCV 91.4 MCH 32.2 MCHC 35.3 RDW 14.6 H Plt Count 306 MPV 10.9 H Immature Gran % (Auto) 3.1 H Neut % (Auto) 81.5 H Lymph % (Auto) 10.1 L [place] % (Auto) 4.6 Eos % (Auto) 0.3 Baso % (Auto) 0.4 Lymph # (Auto) 1.97 [place] # (Auto) 0.9 H Eos # (Auto) 0.1 Baso # (Auto) 0.1 Abs Immat Gran (auto) 0.60 H Absolute Neuts (auto) 15.8 H Absolute Nucleated RBC 0.000 Nucleated RBC % 0.0 Sodium 139 Potassium 2.9 L Chloride 104 Carbon Dioxide 27 Anion Gap 8 BUN 21 H Creatinine 0.67 L Estim Creat Clear Calc 109 Estimated GFR > 60 Glucose 94 Calcium 8.2 L Magnesium 2.0 Total Bilirubin 1.0 AST 77 H ALT 64 H Alkaline Phosphatase 132 H Troponin I < 0.012 Total Protein 6.0 L Albumin 2.6 L Vancomycin Trough 11.4
[2025-01-15 08:27] LABS: Hematocrit 29.1 % (42.0-52.0); Mean Corpuscular HGB Conc 34.4 g/dl (32-36); Mean Corpuscular Hemoglobin 31.3 pg (26-34); Mean Corpuscular Volume 91.2 fl (80-100); Mean Platelet Volume 10.5 fl (7.4-10.4); Platelet Count Result 328 k/mm3 (150-375); Red Blood Count 3.19 M/mm3 (4.6-6.20); Red Cell Distribution Width 14.5 % (11.5-14.5); White Blood Count 14.6 K/mm3 (4.5-10.0)
[2025-01-15] MEDS: methiMAzole 5 MG TAB PO (08:28)
[2025-01-15] MEDS: ENOXAPARIN 40 MG/0.4 ML SYRINGE SUB-Q (08:29)
[2025-01-15 08:44] LABS: Anion Gap 7 mmol/L (4-12); Blood Urea Nitrogen 16 mg/dL (9-20); Calcium 7.9 mg/dL (8.4-10.2); Carbon Dioxide 29 mmol/L (22-30); Chloride 103 mmol/L (98-107); Estimated CRCL calculation 119 ml/min; Estimated Glomerular Filt Rate > 60; Glucose 100 mg/dL (65-110); Potassium 2.8 mmol/L (3.4-5.0); Sodium 139 mmol/L (137-145)
--- NOTE | 2025-01-15 09:01 | P.CONCA_ITS ---
Assessment and Plan Assessment and plan (1) Syncope: Code(s): R55 - Syncope and collapse <PATRICIA Phelps - Last Filed: 01/15/25 10:28> Status: Acute <PATRICIA Phelps - Last Filed: 01/15/25 10:28> Assessment and Plan: Based on his history this event is consistent with vasovagal syncope secondary to dehydration/hypotension potentiated by vasodilation while in a hot shower. There is no evidence on telemetry to suggest an arrhythmia as etiology. Echocardiogram showed normal LV function with mild valvular abnormalities and mild pulmonary hypertension. No further cardiac workup is indicated or recommended in this situation which as his syncope in my opinion was a result of dehydration/hypotension. Cardiology will sign off. Please call with questions. <PATRICIA Phelsp - Last Filed: 01/15/25 10:28> Based on his history this event is consistent with vasovagal syncope secondary to dehydration/hypotension potentiated by vasodilation while in a hot shower. There is no evidence on telemetry to suggest an arrhythmia as etiology. Echocardiogram showed normal LV function with mild valvular abnormalities and mild pulmonary hypertension. Consider an event monitor at discharge. No further cardiac work up at this time. Cardiology will sign off. Please call with questions. <Cecilia Savage MD - Last Filed: 01/15/25 13:04> History of Present Illness History of Present Illness Consult date/time: 01/15/25 09:01 <PATRICIA Phelps - Last Filed: 01/15/25 10:28> Requesting physician: Meghan Baez MD <PATRIICA Phelps - Last Filed: 01/15/25 10:28> Consult reason: Other (syncope) <PATRICIA Phelps - Last Filed: 01/15/25 10:28> Reason For Visit: Severe Sepsis/Recent Influenza/Multifocal Pneumoni <PATRICIA Phelps - Last Filed: 01/15/25 10:28> Narrative: Tomás Louis is a 54 year old male with hyperthyroidism who presented to the emergency department following a syncopal episode. Patient had been feeling unwell for about a week or so and had been diagnosed with influenza. He was being treated with oseltamivir since 01/09. He experienced improvement in symptoms but was persistently febrile throughout last week. On Tuesday he was taking a shower and lost consciousness. Patient states, I was dehydrated and passed out. He denies any prodome including dizziness, chest pain, palpitations. He has never had a syncopal episode prior and has not had any syncope or pre-syncope since. He reports feeling normal at the time of my evaluation, has no complaints, and expresses eagerness to be discharged from the hospital. <PATRICIA Phelps - Last Filed: 01/15/25 10:28> Review of Systems 2 Review of Systems: All systems reviewed & are unremarkable except as noted in HPI and below <PATRICIA Phelps - Last Filed: 01/15/25 10:28> [facility] Past Medical History Medical History: Medical History Tobacco dependence Hyperthyroidism status post radioactive iodine in 2020, maintained on methimazole <PATRICIA Phelps - Last Filed: 01/15/25 10:28> Surgical History Surgical History: Surgical History No history of previous surgery <PATRICIA Phelps - Last Filed: 01/15/25 10:28> Social History Social History: Social History Social History: Surrogate medical decision maker: Melissa Louis, spouse. Code status: Full code. Smoking packs per day: 1 Smoking cigarettes per day: 20.0 Years smoked: 40 Smoking pack-years: 40.00 Smoking status: Current every day smoker Second hand tobacco smoke exposure: No Alcohol intake: never Substance use: never Do You Feel Safe in your Home?: Yes Lack of Transportation: YES Lack of Food: Never True Current Housing: I Have Housing Concerned About Future Housing: No Difficulty Paying Gas/Electric Bills: No Difficulty Paying for Meds: No Currently Unemployed: No Education: High School Diploma/GED Difficulty w/ Childcare or Family Care: No Spiritual care concerns: No <PATRICIA Phelps - Last Filed: 01/15/25 10:28> Meds Home Medications and Allergies Home medications: Home Medications ?Medication ?Instructions ?Recorded ?Confirmed ?Type methimazole 5 mg tablet 5 mg PO DAILY 01/12/25 01/12/25 History <PATRICIA Phelps - Last Filed: 01/15/25 10:28> Allergies/Adverse reactions: Allergies Allergy/AdvReac Type Severity Reaction Status Date / Time No Known Allergies Allergy Mild Unverified 03/13/09 11:23 <PATRICIA Phelps - Last Filed: 01/15/25 10:28> Vital Signs Vital Signs - 24 hr 01/14/25 10:42 01/14/25 14:00 01/14/25 14:00 Temperature 37.4 C 37.4 C Pulse Rate 60 66 66 Respiratory Rate 20 20 Blood Pressure 123/75 123/75 Pulse Oximetry 97 97 Oxygen Delivery 01/14/25 14:05 01/14/25 14:10 01/14/25 15:23 Temperature 37.4 C Pulse Rate 67 72 72 Respiratory Rate 20 20 Blood Pressure 119/75 124/72 Pulse Oximetry 96 96 Oxygen Delivery 01/14/25 15:38 01/14/25 16:00 01/14/25 20:00 Temperature Pulse Rate 72 77 66 Respiratory Rate 20 Blood Pressure Pulse Oximetry Oxygen Delivery 01/14/25 20:50 01/14/25 20:58 01/14/25 21:50 Temperature 37.2 C Pulse Rate 65 77 Respiratory Rate 16 16 Blood Pressure 143/85 H Pulse Oximetry 98 Oxygen Delivery Room Air 01/14/25 22:09 01/15/25 00:00 01/15/25 01:35 Temperature Pulse Rate 77 59 L 77 Respiratory Rate 16 16 Blood Pressure Pulse Oximetry Oxygen Delivery 01/15/25 01:47 01/15/25 04:00 01/15/25 05:35 Temperature 36.8 C Pulse Rate 77 49 L 54 L Respiratory Rate 16 18 Blood Pressure 140/80 Pulse Oximetry 96 Oxygen Delivery <PATRICIA Phelps - Last Filed: 01/15/25 10:28> Exam 2 Const: General: comfortable, no acute distress, alert and awake <PATRICIA Phelps - Last Filed: 01/15/25 10:28> Orientation/consciousness: patient oriented x3 <BOGDAN PhelpsC - Last Filed: 01/15/25 10:28> HENMT: Head: normal to inspection <BOGDAN PhelpsC - Last Filed: 01/15/25 10:28> Eyes: General: appearance normal, both eyes and all related structures < BOGDAN PhelpsC - Last Filed: 01/15/25 10:28> Pupils: Equal, round and reactive pupils present <BOGDAN Phelps - Last Filed: 01/15/25 10:28> Neck: Neck: normal visual inspection, supple and no JVD <BOGDAN Phelps - Last Filed: 01/15/25 10:28> Carotids: normal carotid upstroke and no bruits <BOGDAN Phelps - Last Filed: 01/15/25 10:28> Resp: Effort & Inspection: normal respiratory effort <BOGDAN Phelps - Last Filed: 01/15/25 10:28> Auscultation: not clear to auscultation bilaterally and crackles <BOGDAN Phelps - Last Filed: 01/15/25 10:28> Cardio: Rate: regular rate <PATRICIA Phelps - Last Filed: 01/15/25 10:28> Rhythm: regular rhythm <BOGDAN Phelps - Last Filed: 01/15/25 10:28> Heart sounds: S1 normal heart sound present, S2 normal heart sound present and no murmurs <PATRICIA Pehlps - Last Filed: 01/15/25 10:28> GI: Auscultation: normal bowel sounds <PATRICIA Phelps - Last Filed: 01/15/25 10:28> Skin: General skin exam: normal color <PATRICIA Phelps - Last Filed: 01/15/25 10:28> Neuro: General: patient oriented x3 <PATRICIA Phelps - Last Filed: 01/15/25 10:28> Cranial nerves: Yes Equal, round and reactive pupils present <PATRICIA Phelps - Last Filed: 01/15/25 10:28> Extrem: General: normal to inspection <PATRICIA Phelps - Last Filed: 01/15/25 10:28> Psych: Appearance: grossly normal <PATRICIA Phelps - Last Filed: 01/15/25 10:28> Mental Status: mental status grossly normal <PATRICIA Phelps - Last Filed: 01/15/25 10:28> Results Labs and Meds Result diagrams: 01/15/25 08:13 01/15/25 08:13 <PATRICIA Phelps - Last Filed: 01/15/25 10:28> Lab results: CBC 01/15/25 Range/Units 08:13 WBC 14.6 H (4.5-10.0) K/mm3 RBC 3.19 L (4.6-6.20) M/mm3 Hgb 10.0 L (14.0-18.0) g/dL Hct 29.1 L (42.0-52.0) % Plt Count 328 (150-375) k/mm3 Comprehensive Metabolic Panel 01/15/25 Range/Units 08:13 Sodium 139 (137-145) mmol/L Potassium 2.8 L* (3.4-5.0) mmol/L Chloride 103 (98-107) mmol/L Carbon Dioxide 29 (22-30) mmol/L BUN 16 (9-20) mg/dL Creatinine 0.61 L (0.7-1.3) mg/dL Glucose 100 (65-110) mg/dL Calcium 7.9 L (8.4-10.2) mg/dL Intake and Output 01/14/25 01/15/25 01/15/25 23:59 07:59 15:59 Intake Total 1240 500 Balance 1240 500 Intake: Oral 1240 500 Other: # Unmeasured Voids 4 4 Patient Weight 01/15/25 23:59 Weight 79.2 kg <Cheryl Monk APN-Darell - Last Filed: 01/15/25 10:28>
[2025-01-15] MEDS: POTASSIUM CHLORIDE 20 MEQ ER TABLET 40 MEQ PO (10:09)
[2025-01-15] MEDS: POTASSIUM CHLORIDE INJ 40 MEQ in SODIUM CHLORIDE 0.9% IV 500 ML 130 MEQ IVPB (10:09)
[2025-01-15] MEDS: AZITHROMYCIN 250 MG TABLET 500 MG PO (12:06)
[2025-01-15] MEDS: LORazepam INJ (*CRX) 2 MG/ML VIAL 0.5 MG IV PUSH (15:30)
[2025-01-15] MEDS: MELATONIN 5 MG TABLET PO (20:49)
[2025-01-16] VITALS (9 sets, daily range): BP systolic 148–163; BP diastolic 77–89; PULSE 60–67; RESP 16–24; TEMP 37.2; O2SAT 95–99
[2025-01-16] MEDS: ACETAMINOPHEN 325 MG TABLET 650 MG PO (01:22)
--- NOTE | 2025-01-16 03:02 | PCRCNOTE ---
Patient refused both 1999 and 0200 updraft treatments, stating he was breathing fine. Treatment to resume at 0800.
[2025-01-16 07:41] LABS: Basophils Percent Auto 0.2 % (0.2-1.2); Eosinophils Absolute Auto 0.1 K/mm3 (0-0.3); Eosinophils Percent Auto 0.8 % (0-4.4); Hematocrit 29.6 % (42.0-52.0); Immature Granulocyte Absolute 0.38 K/mm3 (0.00-0.031); Lymphocytes Absolute Auto 2.05 K/mm3 (0.9-3.2); Lymphocytes Percent Auto 16.2 % (18.3-44.2); Mean Corpuscular HGB Conc 33.8 g/dl (32-36); Mean Corpuscular Hemoglobin 31.5 pg (26-34); Mean Corpuscular Volume 93.4 fl (80-100); Mean Platelet Volume 10.5 fl (7.4-10.4); Monocytes Absolute Auto 0.7 K/mm3 (0.1-0.6); Monocytes Percent Auto 5.7 % (2.6-8.5); Neutrophils Absolute Auto 9.4 K/mm3 (1.3-6.7); Neutrophils Percent Auto 74.1 % (45.5-73.1); Platelet Count Result 405 k/mm3 (150-375); Red Blood Count 3.17 M/mm3 (4.6-6.20); Red Cell Distribution Width 14.5 % (11.5-14.5); White Blood Count 12.7 K/mm3 (4.5-10.0)
[2025-01-16 07:51] LABS: Alanine Aminotransferase 153 U/L (6-50); Albumin Level 2.5 g/dL (3.5-5.1); Alkaline Phosphatase 110 U/L (38-126); Anion Gap 5 mmol/L (4-12); Aspartate Amino Transferase 124 U/L (17-59); Bilirubin,Total 1.2 mg/dL (0.2-1.3); Blood Urea Nitrogen 12 mg/dL (9-20); Calcium 7.9 mg/dL (8.4-10.2); Carbon Dioxide 29 mmol/L (22-30); Chloride 104 mmol/L (98-107); Estimated CRCL calculation 127 ml/min; Estimated Glomerular Filt Rate > 60; Glucose 95 mg/dL (65-110); Magnesium 1.5 mg/dL (1.6-2.3); Phosphorus 3.2 mg/dL (2.5-4.5); Potassium 3.4 mmol/L (3.4-5.0); Sodium 138 mmol/L (137-145)
[2025-01-16 08:16] LABS: Anisocytosis 1+; Platelet Estimate Adequate (Adequate); Schistocytes None Seen
[2025-01-16 08:17] LABS: Atypical Lymphocytes Present
[2025-01-16] MEDS: AZITHROMYCIN 250 MG TABLET 500 MG PO (08:30)
[2025-01-16] MEDS: ENOXAPARIN 40 MG/0.4 ML SYRINGE SUB-Q (08:30)
[2025-01-16] MEDS: methiMAzole 5 MG TAB PO (08:30)
[2025-01-16] MEDS: LEVALBUTEROL NEB 1.25 MG/3 ML 0.63 MG INHALATION ×2 (08:56→14:21)
[2025-01-16] MEDS: IPRATROPIUM BR 0.02% INH SOLN 0.5 MG/2.5 ML VIAL INHALATION ×2 (08:56→14:22)
[2025-01-16] MEDS: AMOXICILLIN/CLAVULANATE K 875-125 MG TAB 1 TABLET PO (13:22)
[2025-01-16] MEDS: MAGNESIUM OXIDE 400 MG TABLET PO (13:22)
[2025-01-16] MEDS: POTASSIUM CHLORIDE 20 MEQ ER TABLET 40 MEQ PO (13:22)
--- NOTE | 2025-01-16 14:04 | PM.DS ---
DS: Admitting Diagnosis Discharge Date 01/16/25 Admitting Diagnosis Syncope DS: Discharge Diagnosis Discharge Diagnosis (1) Sepsis: Code(s): A41.9 - Sepsis, unspecified organism Status: Acute (2) Multifocal pneumonia: Code(s): J18.9 - Pneumonia, unspecified organism Status: Acute (3) Syncope: Code(s): R55 - Syncope and collapse Status: Acute (4) Hypokalemia: Code(s): E87.6 - Hypokalemia Status: Acute (5) History of influenza: Code(s): Z87.09 - Personal history of other diseases of the respiratory system Status: Acute (6) Hyperbilirubinemia: Code(s): E80.6 - Other disorders of bilirubin metabolism Status: Acute (7) Hyperthyroidism: Code(s): E05.90 - Thyrotoxicosis, unspecified without thyrotoxic crisis or storm Status: Acute (8) Tobacco dependence: Code(s): F17.200 - Nicotine dependence, unspecified, uncomplicated Status: Acute DS: Summary Hospital Course Reason for hospitalization: 54yo male smoker with hyperthyroidism who presented to the emergency department via EMS from home for evaluation after syncopal episode. Please see H&P for details. Hospital Course: In the ED: Vital signs on arrival include a temperature of 97.8?, blood pressure 95/77, pulse 125, respiratory rate 23, SpO2 98% on room air. Labs were significant for WBC count of 45.1 with 21% bands, hemoglobin 13.3, sodium 135, potassium 2.8, chloride 97, anion gap 14, BUN 30, creatinine 1.14, glucose 150, lactic acid 3.4, total bilirubin 2.5, alkaline phosphatase 235, troponin less than 0.012, CRP 36.7. He was negative for influenza, RSV, and COVID. Head CT was without acute findings. Chest x-ray showed a large consolidation in the left upper lobe consistent with pneumonia. He received 3 L lactated Ringer's bolus with improvement in his blood pressures. He was started on Rocephin, Azithromycin and Vancomycin. Potassium was replaced and he was admitted for further care. Patient with sepsis with lactic was 3.4 but normal after fluid resuscitation. WBC count trended down to 12.7K. He remained on room air through out his hospital course. Sputum culture was negative. Blood cultures remained negative. Urine antigens pending. He had improvement and was transitioned to oral antibiotics. Due to the syncopal episode, he was telemetry but showed no acute findings. Echo showing EF 60-65%, indeterminate diastolic function, mild valvular disease and mild pulmonary HTN. Troponin negative. Cardiology was consulted but felt the syncopal episode was related to sepsis with PNA. Cardiology felt an event monitor at discharge should be considered so this was ordered. Patijanethn has hyperthyroidism on methimazole which was resumed. TSH <0.015, T4 2.95. AST/ALT were climbing to 124 and 153 respectfully. I spoke with the patient's morphology teacher who felt unlikely the small dose of methimazole would cause hepatotoxicity. Possibly a delayed response related to the sepsis. Patient is ready for discharge and he adamantly refuses any further testing and states he is leaving today. He is dressed and has refused to have IV replaced or to wear the telemetry. He was educated about the benefits of smoking cessation. He overall did well and was able to be discharged home on 01/16/25. Status at Discharge Cognitive/behavioral status at discharge: stable Time Spent with Patient Time attestation: Total time spent providing and/or coordinating discharge services: 40 minutes Time spent: Greater than 30 minutes Exam Narrative: AF 98.9 148/77 66 20 95% ra Gen - NARD Chest - few basilar rhonchi, minimally decreased BS in the left lung field. CV - RRR S1/S2 Abd - Soft, NT/ND, Positive BS Ext - No pedal edema Psych - Nml mood and affect Skin - Warm and dry DS: Data Data Completed and Pending Labs on day of discharge: Labs from last 24 hours 01/16/25 07:24 WBC 12.7 H RBC 3.17 L Hgb 10.0 L Hct 29.6 L MCV 93.4 MCH 31.5 MCHC 33.8 RDW 14.5 Plt Count 405 H MPV 10.5 H Immature Gran % (Auto) 3.0 H Neut % (Auto) 74.1 H Lymph % (Auto) 16.2 L Emmons % (Auto) 5.7 Eos % (Auto) 0.8 Baso % (Auto) 0.2 Lymph # (Auto) 2.05 Emmons # (Auto) 0.7 H Eos # (Auto) 0.1 Baso # (Auto) 0.0 Abs Immat Gran (auto) 0.38 H Absolute Neuts (auto) 9.4 H Absolute Nucleated RBC 0.000 Band Neutrophils % Not Reportable Nucleated RBC % 0.0 Atypical Lymphocytes Present Platelet Estimate Adequate Anisocytosis 1+ Schistocytes None seen Sodium 138 Potassium 3.4 Chloride 104 Carbon Dioxide 29 Anion Gap 5 BUN 12 Creatinine 0.57 L Estim Creat Clear Calc 127 Estimated GFR > 60 Glucose 95 Calcium 7.9 L Phosphorus 3.2 Magnesium 1.5 L Total Bilirubin 1.2 AST 124 H ALT 153 H Alkaline Phosphatase 110 Total Protein 6.0 L Albumin 2.5 L Preliminary micro results at discharge 01/12/25 12:44 Blood Culture - Preliminary Blood 01/12/25 12:27 Blood Culture - Preliminary Blood Discharge Plan Discharge Attending physician on discharge: Robert Berry Consulting providers: Cecilia Savage Discharging Clinician: Robert Berry Anticipated Discharge Date/Time: 01/16/25 14:33 Patient Disposition: Home, Self-Care Activity: as tolerated Diet: regular Discharge Instructions: Stop using all products that contain tobacco or nicotine Please complete your antibiotic course even if you are starting to feel well. Take precautions to avoid falls. Rise slowly from a lying or sitting position. Pause before standing or walking. Contact your doctor or call 911 and come to the Emergency Room if you have fevers, shortness of breath, lightheadedness with standing or other worrisome symptoms. You will have repeat liver tests and thyroid tests in 1 week. Please make sure you send these results to Dr Obando. You will also have a follow-up chest xray in 1 month to ensure the lungs clear. Please have your primary care doctor follow up with this result. Follow-up with your primary care provider in 1-2 weeks. Please call for appointment. Follow-up with your [facility] Specialist at next scheduled appointment. Thank you for using [facility] for your health care needs. Patient Instructions: Antibiotic Form Patient Language: Uzbek Stand Alone Forms: General Discharge Information, Work/School Release IP Follow-up/Referrals: Julio C,Alin Zamorano [Other] - Call for Appointment Discharge Medications: New amoxicillin-pot clavulanate 875-125 mg tablet 1 tablet PO Q12H Qty: 5 0RF Continued methimazole 5 mg tablet 5 mg PO DAILY Patient Comments: Daily 6 days a week. Skip Sundays. Other Ambulatory Orders: XR chest 2V (Routine) Timeframe: 1 Month Location: Determined by Patient Ordered By: Robert Berry [place] cardiac event monitor (Routine) Timeframe: 1 Month Location: Determined by Patient Ordered By: Robert Berry Hepatic Panel (Routine) Timeframe: 1 Week Location: Determined by Patient Ordered By: Robert Berry Thyroid Stimulating Hormone Reflex (Routine) Timeframe: 1 Week Location: Determined by Patient Ordered By: Robert Berry Date of admission: 01/12/25 14:10 Primary Care Provider: Julio CAlin Admitting Provider: Baldo Sherwood Attending physician on admission: Baldo Sherwood Condition: Stable Hospitalist MIPS Heart Failure (Exclusion) Patient has history of Heart Transplant or Left Ventricular Assistive Device?: No IF YES, STOP HERE Heart Failure (Qualifier) Patient has current or prior documentation of LVEF less than or equal to 40%, or mod/servere depressed LVSF?: No IF NO, STOP HERE
[2025-01-16 22:03] LABS: Pneumococcal Antigen Urine DETECTED
--- NOTE | 2025-01-18 06:32 | PC.NURSE ---
Blood cx are negative. Urine pneumococcal Ag is detected. Dr. Berry aware with results being faxed to PCP.
[2025-01-18 17:19] LABS: Mycoplasma IgM Antibody Titer 32 U/mL
--- NOTE | 2025-01-21 07:19 | PC.NURSE ---
Mycoplasma IgM is WNL at 32. Dr. Berry aware.
== END 2025-01-16 15:00 | disposition home or self-care (01) | DRG 871 ==
LOC: ANHED 13:39 → ANHIMU 15:36 → ANH2MED 01-13 18:38
PROVIDERS: Emergency Medicine; Hospitalist; Internal Medicine; Physician Assistant; Admitting Provider Internal Medicine; Emergency Provider Student in an Organized Health Care Education/Training Program; Visit Provider Internal Medicine
DX: A41.9 Sepsis, unspecified organism (principal); J18.9 Pneumonia, unspecified organism; E87.6 Hypokalemia; E80.6 Other disorders of bilirubin metabolism; E05.90 Thyrotoxicosis, unspecified without thyrotoxic crisis or storm; F17.210 Nicotine dependence, cigarettes, uncomplicated
CPT/HCPCS: 36415; 70450; 71046; 80048; 80053; 80202; 82248; 83605; 83735; 84100; 84132; 84439; 84443; 84484; 85025; 85027; 85610; 85730; 86140; 86738; 87040; 87070; 87205; 87449; 87637; 87641; 87899; 93005; 93306; 94640; 96365; 96366; 96367; 96368; 96375; 99285; A9270; J0456; J0696; J1650; J2060; J3370; J3480; J7040; J7120; P9047

== ENCOUNTER 2025-01-28 15:29 | Outpatient (CLI) | payer OTHER, SELFPAY ==
[2025-01-28 16:12] LABS: Albumin Level 4.1 g/dL (3.5-5.1); Aspartate Amino Transferase 32 U/L (17-59)
[2025-01-28 16:48] LABS: Alanine Aminotransferase 46 U/L (6-50); Alkaline Phosphatase 96 U/L (38-126); Bilirubin,Total 0.6 mg/dL (0.2-1.3)
[2025-01-28 16:49] LABS: Thyroid Stimulating Hormone Reflex < 0.015 uIU/mL (0.465-4.68)
[2025-01-28 17:33] LABS: Free T4 Free Thyroxine Reflex 1.53 ng/dL (0.78-2.19)
--- OUTSIDE RECORDS SUMMARY | 2025-01-28 18:08 | XMS_ITS | Encounter Summary ---
Author Organization [facility] Healthcare Address [address] [place] [address] Care Team Providers Care Greenbelt Name Role Phone Shannan Avina NP Primary Care Provider [phone] Encounter Details Date Type Department Care Team (Late st Contact Info) Description 01/24/2025 Orders Only [facility] Medical Group Cardiology [address] [address] Cheryl Monk, NEHA [address] [facility] [address] [address] Social History Tobacco Use Types Packs/Day Years Used Date Smoking Tobacco: Every Day Cigarettes Smokeless Tobacco: Never Alcohol Use Standard Drinks/Week Comments No 0 (1 standard drink = 0.6 oz pur e alcohol) PHQ-2 Answer Date Recorded PHQ-2 Total Score (If total score is 3 or more points, staff should administer the PHQ-9) 0 12/22/2022 Sex and Gender Information Value Date Recorded Sex Assigned at Not on file Legal Sex Male 9:24 PM CARROT BUNCHER Gender Identity Not on file Sexual Orientation Not on file documented as of this encounter Plan of Treatment Not on file documented as of this encounter Procedures Procedure Name Priority Date/Time Associated Diagnosis Comments CARDIOLOGY DOCUMENT SCAN Routine 01/15/2025 1:54 PM CARROT BUNCHER documented in this encounter Results * Cardiology Document Scan (01/15/2025 1:54 PM CARROT BUNCHER) Anatomical Region Laterality Modality Other Cheryl Monk NP CV CARDIAC SERVICES PROCEDUR ES Final Result documented in this encounter Visit Diagnoses Not on filedocumented in this encounter Care Teams Greenbelt Relationship Specialty Start Date End Date Shannan Avina NP PCP - General Nurse Practitioner 08/18/17 documented as of this encounter
--- OUTSIDE RECORDS SUMMARY | 2025-01-28 18:08 | XMS_ITS | Encounter Summary ---
Author Organization [facility] Healthcare Address [address] [place] [address] Care Team Providers Care Tick Eradicator Name Role Phone Shannan Avina NP Primary Care Provider [phone] Encounter Details Date Type Department Care Team (Late st Contact Info) Description 01/16/2025 Telephone [facility] [id number] [place] [address] [place] [address] [place] [address] [facility] [address] [address] Social History Tobacco Use Types Packs/Day Years [...] on file Legal Sex Male 9:24 PM INTAKE RN Gender Identity Not on file Sexual Orientation Not on file documented as of this encounter Miscellaneous Notes * Telephone Encounter - Cipriano Collins - 01/28/2025 4:11 PM CDT The patient has been scheduled with SR. * Telephone Encounter - Vishnu Samuel MD - 01/16/2025 2:24 PM INTAKE RN Spoke to Dr. Moore, from [facility] Patient got admitted with pneumonia and sepsis Found to have elevated liver enzymes For now I have advised to continue the methimazole as he has been taking that for a long time and is currently on a small dose Advised to repeat thyroid function test and liver enzymes in 1 week Please reach out patient and make a follow-up appointment with me in 2-3 weeks Use 8: 15 am or 1245 slot KE RN documented in this encounter Plan of Treatment Not on file documented as of this encounter Visit Diagnoses Not on filedocumented in this encounter Care Teams Tick Eradicator Relationship Specialty Start Date End Date Shannan Avina NP PCP - General Nurse Practitioner 08/18/17 documented as of this encounter
--- OUTSIDE RECORDS SUMMARY | 2025-01-28 18:09 | XMS_ITS | Referral Summary ---
Author Organization [facility] [address] [place] [address] Care Team Providers Care Polyethylene Combiner Name Role Phone Shannan Avina DIRECTOR WORKERS COMPENSATION Primary Care Provider [phone] Encounters Date Type Department Care Team Description 01/24/[address] [facility] Medical Group Cardiology [address] [facility] [address], [place] [address] Cheryl Monk NP 01/17/2025 1:30 PM OBSERVER GRAVITY PROSPECTING Ancillary Procedure [facility] Medical Group Cardiology [address] [facility] [address] [place] [address] Syncope and collapse 01/16/2025 Telephone [facility] [address] [place] [address] [address] [place] [address] Vishnu Samuel MD 01/12/2025 Orders Only [facility] Health Information Management [address] [place] [address] Scanning, Provider from Last 3 Months Allergies No known active allergies Medications methIMAzole (TAPAZOLE) 5 mg tabletIndication s:Graves disease,Hyperthy roidism,Diffuse toxic goiter TAKE 1 TABLET (5 MG) BY MOUTH 6 DAYS PER WEEK. SKIP ON TUESDAY. 72 tablet 1 12/27/2024 Active Active Problems Problem Noted Date Diagnosed Date Smoking 1/2 pack a day or less 06/23/2020 Assessment & Plan (12/22/2022 12:24 PM OBSERVER GRAVITY PROSPECTING): Counseled to cut back on smoking Assessment [...] 05/15/2018 Assessment & Plan (01/25/2024 8:15 AM OBSERVER GRAVITY PROSPECTING): Chronic, improving Recent thyroid function test Plan [...] months Assessment & Plan (12/22/2022 12:24 PM OBSERVER GRAVITY PROSPECTING): Plan as above Assessment & Plan (08/10/2022 3:54 PM CDT): Plan as above Assessment & Plan (01/27/2022 7:21 AM OBSERVER GRAVITY PROSPECTING): Status post radioactive iodine ablation September 2021 [...] 08/19/2017 Assessment & Plan (12/22/2022 12:24 PM OBSERVER GRAVITY PROSPECTING): Patient currently on methimazole 10 mg oral [...] 4 days a week and on Tue, Tue, Tue take one full tab - labs in [...] immediately Assessment & Plan (12/27/2019 9:25 AM OBSERVER GRAVITY PROSPECTING): - reviewed recent TFT - WNL - [...] immediately Assessment & Plan (11/13/2018 8:49 PM OBSERVER GRAVITY PROSPECTING): - advise to continue to take Methimazole [...] try to obtain pt. Recent labs from [facility] and reassess and further adjust Methimazole [...] immediately Assessment & Plan (10/25/2017 10:43 AM OBSERVER GRAVITY PROSPECTING): - Reviewed pt. Labs from 10/24/2017 TSH [...] for the treatment of hyperthyroidism Name: Tomás Loius Date of : 1970 Medication : Methimazole [...] on file Legal Sex Male 9:24 PM OBSERVER GRAVITY PROSPECTING Gender Identity Not on file Sexual Orientation Not on file Last Filed Vital Signs Vital Sign Reading Time Taken Comments Blood Pressure 130/78 01/24/2024 2:54 PM OBSERVER GRAVITY PROSPECTING Pulse 69 01/24/2024 2:54 PM OBSERVER GRAVITY PROSPECTING Temperature - - Respiratory Rate 17 01/24/2024 2:54 PM OBSERVER GRAVITY PROSPECTING Oxygen Saturation - - Inhaled Oxygen Concentration - - Weight 82.1 kg (181 lb) 01/24/2024 2:54 PM OBSERVER GRAVITY PROSPECTING Height 175.3 cm (5' 9 ) 01/24/2024 2:54 PM OBSERVER GRAVITY PROSPECTING Body Mass Index 26.73 01/24/2024 2:54 PM OBSERVER GRAVITY PROSPECTING Plan of Treatment Not on file Procedures Procedure Name Priority Date/Time Associated Diagnosis Comments CARDIOLOGY DOCUMENT SCAN Routine 01/15/2025 1:54 PM OBSERVER GRAVITY PROSPECTING SCAN - LABS 01/12/2025 from Last 3 Months Results * Cardiology Document Scan (01/15/2025 1:54 PM OBSERVER GRAVITY PROSPECTING) Anatomical Region Laterality Modality Other Cheryl Monk NP CV CARDIAC SERVICES PROCEDUR ES Final Result * SCAN - LABS (01/12/2025) Provider Scanning Final Result from Last 3 Months Insurance [facility] HMO [facility] HMO/POS Care Teams Polyethylene Combiner Relationship Specialty Start Date End Date Shannan Avina NP PCP - General Nurse Practitioner 08/18/17
--- OUTSIDE RECORDS SUMMARY | 2025-01-28 18:09 | XMS_ITS | Clinical Summary ---
Author Organization [facility] [address] [place] [address] Care Team Providers Care Lumber Handler Name Role Phone Shannan Avina NP Primary Care Provider [phone] Allergies No known active allergies Medications methIMAzole (TAPAZOLE) 5 mg tabletIndication s:Graves disease,Hyperthy roidism,Diffuse toxic goiter TAKE 1 TABLET (5 MG) BY MOUTH 6 DAYS PER WEEK. SKIP ON TUESDAY. 72 tablet 1 12/27/2024 Active Active Problems Problem Noted Date Diagnosed Date Smoking 1/2 pack a day or less 06/23/2020 Assessment & Plan (12/22/2022 12:24 PM MAINFRAME SOFTWARE DEVELOPER): Counseled to cut back on smoking Assessment [...] 05/15/2018 Assessment & Plan (01/25/2024 8:15 AM MAINFRAME SOFTWARE DEVELOPER): Chronic, improving Recent thyroid function test Plan [...] months Assessment & Plan (12/22/2022 12:24 PM MAINFRAME SOFTWARE DEVELOPER): Plan as above Assessment & Plan (08/10/2022 3:54 PM CDT): Plan as above Assessment & Plan (01/27/2022 7:21 AM MAINFRAME SOFTWARE DEVELOPER): Status post radioactive iodine ablation September 2021 [...] 08/19/2017 Assessment & Plan (12/22/2022 12:24 PM MAINFRAME SOFTWARE DEVELOPER): Patient currently on methimazole 10 mg oral [...] immediately Assessment & Plan (12/27/2019 9:25 AM MAINFRAME SOFTWARE DEVELOPER): - reviewed recent TFT - WNL - advise to continue to take Methimazole 5 mg take one tab on , Tue And take 2 tabs Tuesday [...] immediately Assessment & Plan (11/13/2018 8:49 PM MAINFRAME SOFTWARE DEVELOPER): - advise to continue to take Methimazole [...] to obtain pt. Recent labs from [facility] and reassess and further adjust [...] immediately Assessment & Plan (10/25/2017 10:43 AM MAINFRAME SOFTWARE DEVELOPER): - Reviewed pt. Labs from 10/24/2017 TSH [...] tests. Then please contact your doctor immediately Encounters Date Type Department Care Team Description 01/24/2025 Orders Only [facility] Medical [facility] Cardiology [address] [facility] [address], [place] [address] Cheryl Monk NP 01/17/2025 1:30 PM MAINFRAME SOFTWARE DEVELOPER Ancillary Procedure [facility] Medical [facility] Cardiology [address] [facility] [address] [place] [address] Syncope and collapse 01/16/2025 Telephone [facility] [address] [place] [address] [address], [place] [address] Vishnu Samuel MD 01/12/2025 Orders Only [facility] Health Information Management [address] [place] [address] Scanning, Provider from Last 3 Months Surgical History Surgery Date Site/Laterality Comments KNEE [...] on file Legal Sex Male 9:24 PM MAINFRAME SOFTWARE DEVELOPER Gender Identity Not on file Sexual Orientation Not on file Obstetrics History Last Filed Vital Signs Vital Sign Reading Time Taken Comments Blood Pressure 130/78 01/24/2024 2:54 PM MAINFRAME SOFTWARE DEVELOPER Pulse 69 01/24/2024 2:54 PM MAINFRAME SOFTWARE DEVELOPER Temperature - - Respiratory Rate 17 01/24/2024 2:54 PM MAINFRAME SOFTWARE DEVELOPER Oxygen Saturation - - Inhaled Oxygen Concentration - - Weight 82.1 kg (181 lb) 01/24/2024 2:54 PM MAINFRAME SOFTWARE DEVELOPER Height 175.3 cm (5' 9 ) 01/24/2024 2:54 PM MAINFRAME SOFTWARE DEVELOPER Body Mass Index 26.73 01/24/2024 2:54 PM MAINFRAME SOFTWARE DEVELOPER Plan of Treatment Health Maintenance Due Date [...] Additional history exists Influenza Vaccine (#1) 2024 Procedures Procedure Name Priority Date/Time Associated Diagnosis Comments CARDIOLOGY DOCUMENT SCAN Routine 01/15/2025 1:54 PM MAINFRAME SOFTWARE DEVELOPER SCAN - LABS 01/12/2025 from Last 3 Months Results * Cardiology Document Scan (01/15/2025 1:54 PM MAINFRAME SOFTWARE DEVELOPER) Anatomical Region Laterality Modality Other Cheryl Monk NP CV CARDIAC SERVICES PROCEDUR ES Final Result * SCAN - LABS (01/12/2025) us Provider Scanning Final Result from Last 3 Months Insurance [facility] H[facility]/POS Care Teams Lumber Handler Relationship Specialty Start Date End Date Shannan Avina NP PCP - General Nurse Practitioner 08/18/17
--- OUTSIDE RECORDS SUMMARY | 2025-01-28 18:09 | XMS_ITS | Continuity of Care Document ---
Author Organization [facility] Address [address] [place] [address] [place] [address] Phone Care Team Providers Care Contract Designer Name Role Phone Helio PENA, Derik Unavailable Unavailable Allergies, Adverse Reactions, Alerts Substance Reaction Status Criticality No Known Allergies Active No Inform ation Procedures Procedure Date OFFICE/OUTPATIENT VISIT, EST PREV VISIT, NEW, AGE 40-64 OFFICE/OUTPATIENT VISIT, [facility] Advance Directives Directive Yes / No Effective Date File Name No Information Encounters Encounter Description Practice Location Reason(s) For Visit Diagnoses Date Provider Providers Copied on Encounter [facility], [address], [place], [place], [id number], [place] tel:[phone] [facility] No Information 4 Helio More. [address], [place], [place], [id number] , [place]. tel:[phone] Referring Provider: Derik Cadet, [address] [facility] [address], [place], [place], [id number]. tel:[phone] OFFICE/OUTPA TIENT VISIT, EST [facility], [address], [place], [place], [id number], [place] tel:[phone] [facility] back pain (chief complaint) Lumbago 4 Helio More. [address], [place], [place], [id number] , [place]. tel:[phone] Referring Provider: Derik Cadet, [address] [facility] [address], [place], [place], [id number]. tel:[phone] PREV VISIT, NEW, AGE 40-64 [facility], [address], [place], [place], [id number], [place] tel:[phone] [facility] Medicine Physical (chief complaint) Dietary surveillance and counselingRoutine Medical ExamLumbagoRoutine Medical Exam 3 Helio More. [address], [place], [place], [id number] , [place]. [phone] Referring Provider: Derik Cadet, [address], [place], [place], [id number]. tel:[phone] Family History Family Member Type Diagnosis Age At Onset Father Problem (finding) Cancer - lung CA Brother Problem (finding) Alive and well Mother Problem (finding) Alive and well Payers Payer name Insurance type Covered green party ID Authoriza tion(s) No Information Social History Type Description Quantity Date Captured Comments Sex Male Smoking Status No Information Chief Complaint And Reason For Visit No Information Plan Of Treatment Date Type Action Status Goal Mammogram. Due on 3 due Goal Tobacco cessation counseling completed Goal Tobacco cessation counseling completed Referral Ordered: Pain Management (related to Lumbago) ordered Referral Ordered: LUMBAR XRAY AP AND LAT ONLY ordered Referral Ordered: Referral: Pain Management. Evaluate and treat. ordered History Of Present Illness Encounter Date Complaint History Of Prese nt Illness No Information Instructions Date Instruction Additional Infor lakeisha Dietary counseling Related to Di etary surveillance counseling Decrease caloric intake Related to Dietary surveillance counseling Assessments Type Assessment Date No Information
--- OUTSIDE RECORDS SUMMARY | 2025-01-28 18:09 | XMS_ITS | Encounter Summary ---
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
[2025-01-28 18:25] LABS: Total Triiodothyronine (T3) 2.11 NG/ML (0.97-1.69)
== END 2025-01-28 15:30 | disposition home or self-care (01) ==
PROVIDERS: Visit Provider Internal Medicine
DX: E05.90 Thyrotoxicosis, unspecified without thyrotoxic crisis or storm (principal)
CPT/HCPCS: 36415; 80076; 84439; 84443; 84480